=== PATIENT | female | born 1945 | race Caucasian/White ===

== ENCOUNTER 2016-09-05 14:56 | Inpatient (IN) | payer MEDICARE, MEDICAID ==
[2016-09-05] MEDS ORDERED: IPRATROPIUM/ALBUTEROL 0.5-2.5 MG/3 ML AMPUL NEB ONE (15:24)
[2016-09-05] MEDS ORDERED: PREDNISONE 20 MG TABLET PO ONE (15:24)
--- NOTE | 2016-09-05 15:25 | ER Document Report ---
ED Medical Screen (RME) - General Stated Complaint: CHEST PAIN, DIFFICULTY BREATHING Mode of Arrival: Wheelchair Information source: Patient Notes: Patient reports shortness of breath that started 4 days ago. Patient reports some midsternal chest discomfort off and on. Patient treats chest pain to cough symptoms. Pt takes eliquis, patient has been advised not to take aspirin. hx: Atrial fibrillation, hypertension, diabetes, dyslipidemia I have greeted and performed a rapid initial assessment of this patient. A comprehensive ED assessment and evaluation of the patient, analysis of test results and completion of the medical decision making process will be conducted by additional ED providers. - Related Data Allergies/Adverse Reactions: acetaminophen [From Percocet] Adverse Reaction (Verified 09/05/16 15:21) oxycodone HCl [From Percocet] Adverse Reaction (Verified 09/05/16 15:21) Past Medical History - Past Medical History Cardiac Medical History: Reports: Hx Hypercholesterolemia Malignancy Medical History: Reports: Hx Breast Cancer Musculoskeltal Medical History: Reports Hx Arthritis Past Surgical History: Reports: Hx Appendectomy, Hx Bowel Surgery, Hx Cholecystectomy, Hx Mastectomy - Immunizations Hx Diphtheria, Pertussis, Tetanus Vaccination: No Physical Exam - Vital signs Vitals: Temp Pulse Resp BP Pulse Ox 98.3 F 46 L 19 138/88 H 94 09/05/16 15:19 09/05/16 15:19 09/05/16 15:19 09/05/16 15:19 09/05/16 15:19 - Respiratory Respiratory status: No respiratory distress Breath sounds: Nonproductive cough, Wheezing Course - Vital Signs Vital signs: Temp Pulse Resp BP Pulse Ox 98.3 F 46 L 19 138/88 H 94 09/05/16 15:19 09/05/16 15:19 09/05/16 15:19 09/05/16 15:19 09/05/16 15:19
[2016-09-05 15:57] LABS: ABSOLUTE EOSINOPHILS # (AUTO) 0.1 10^3/uL (0.0-0.6); ABSOLUTE LYMPHOCYTES (AUTO) 0.9 10^3/uL (0.5-4.7); ABSOLUTE MONOCYTES (AUTO) 0.5 10^3/uL (0.1-1.4); ABSOLUTE NEUT (AUTO) 4.3 10^3/uL (1.7-8.2); BASOPHILS % (AUTO) 0.6 % (0-2); EOSINOPHILS % (AUTO) 1.9 % (0-6); HEMATOCRIT 37.6 % (36.0-47.0); HEMOGLOBIN 12.2 g/dL (12.0-15.5); LYMPHOCYTES % (AUTO) 15.4 % (13-45); MEAN CORPUSCULAR HEMOGLOBIN 27.8 pg (27.0-33.4); MEAN CORPUSCULAR HGB CONC 32.5 g/dL (32.0-36.0); MEAN CORPUSCULAR VOLUME 86 fl (80-97); MONOCYTES % (AUTO) 9.2 % (3-13); RED BLOOD COUNT 4.39 10^6/uL (3.72-5.28); RED CELL DISTRIBUTION WIDTH 16.1 % (11.5-14.0); SEGMENTED NEUTROPHILS % (AUTO) 72.9 % (42-78); WHITE BLOOD COUNT 5.9 10^3/uL (4.0-10.5)
[2016-09-05 16:22] LABS: ALANINE AMINOTRANSFERASE 32 U/L (9-52); ALBUMIN 3.6 g/dL (3.5-5.0); ALKALINE PHOSPHATASE 127 U/L (38-126); ANION GAP 13 (5-19); ASPARTATE AMINO TRANSFERASE 31 U/L (14-36); BLOOD UREA NITROGEN 16 mg/dL (7-20); CALCIUM 9.6 mg/dL (8.4-10.2); CARBON DIOXIDE 23 mmol/L (22-30); CHLORIDE 105 mmol/L (98-107); CREATINE KINASE 54 U/L (30-135); CREATININE RESULT 0.69 mg/dL (0.52-1.25); GLUCOSE 166 mg/dL (75-110); MAGNESIUM 1.7 mg/dL (1.6-2.3); POTASSIUM 3.7 mmol/L (3.6-5.0); SODIUM 140.9 mmol/L (137-145); TOTAL PROTEIN 6.1 g/dL (6.3-8.2)
[2016-09-05 16:34] LABS: CREATINE KINASE MB 1.07 ng/mL (<4.55); TROPONIN I < 0.012 ng/mL
[2016-09-05] MEDS ORDERED: FUROSEMIDE INJ/PF 40 MG/4 ML SDV IV ONE (17:07)
[2016-09-05] MEDS ORDERED: DILTIAZEM HCL INJ 25 MG/5 ML VIAL IV ONE ×3 (17:07→19:50)
--- NOTE | 2016-09-05 17:14 | ER Document Report ---
ED Cardiac - General Chief Complaint: Chest Pain Stated Complaint: CHEST PAIN, DIFFICULTY BREATHING Time seen by provider: 17:08 Mode of Arrival: Wheelchair Notes: The patient is a 71-year-old female, past medical history A. kory (on Eliquiis), GERD, presents with 5 days of increased shortness of breath and palpitations. She said her heart rate has been in the 120s to 140s over the past several days. She is taking her 240 mg Diltiazem ER daily and Eliquiis daily, last doses were this morning. She is also noticing leg swelling. Denies nausea, vomiting, back pain, syncope, calf tenderness, rash, abdominal pain, fevers or recent illness. TRAVEL OUTSIDE OF THE [place] IN LAST 30 DAYS: No - Related Data Allergies/Adverse Reactions: acetaminophen [From Percocet] Adverse Reaction (Verified 09/05/16 15:21) oxycodone HCl [From Percocet] Adverse Reaction (Verified 09/05/16 15:21) Home Medications: Current Home Medications Albuterol Sulfate [Albuterol Sulfate 2.5mg/3 mL] 1 vial NEB TID 09/05/16 [ History] Allopurinol [Zyloprim 300 mg Tablet] 300 mg PO DAILY 09/05/16 [History] Apixaban [Eliquis 5 mg Tablet] 5 mg PO BID 09/05/16 [History] Atorvastatin Calcium [Lipitor 40 mg Tablet] 40 mg PO DAILY 09/05/16 [History] Diltiazem HCl [Diltiazem ER] 240 mg PO DAILY 09/05/16 [History] Duloxetine HCl [Cymbalta] 60 mg PO DAILY 09/05/16 [History] Esomeprazole Magnesium [Nexium] 40 mg PO DAILY 09/05/16 [History] Metformin HCl [Metformin HCl ER] 1,000 mg PO BID 09/05/16 [History] Past Medical History - General Information source: Patient - Social History Smoking Status: Never Smoker Chew tobacco use (# tins/day): No Frequency of alcohol use: None Drug Abuse: None Family History: Reviewed & Not Pertinent Patient has suicidal ideation: No Patient has homicidal ideation: No - Past Medical History Cardiac Medical History: Reports: Hx Hypercholesterolemia Renal/ Medical History: Denies: Hx Peritoneal Dialysis Malignancy Medical History: Reports: Hx Breast Cancer Musculoskeltal Medical History: Reports Hx Arthritis Past Surgical History: Reports: Hx Appendectomy, Hx Bowel Surgery, Hx Cholecystectomy, Hx Mastectomy - Immunizations Hx Diphtheria, Pertussis, Tetanus Vaccination: No Review of Systems - Review of Systems Notes: REVIEW OF SYSTEMS: CONSTITUTIONAL: -fevers, -chills EENT: -eye pain, -difficulty swallowing, -nasal congestion CARDIOVASCULAR: +palpitations, -chest pain, -syncope. RESPIRATORY: -cough, -SOB GASTROINTESTINAL: -abdominal pain, -nausea, -vomiting, -diarrhea GENITOURINARY: -dysuria, -hematuria MUSCULOSKELETAL: -back pain, -neck pain SKIN: -rash or skin lesions. HEMATOLOGIC: -easy bruising or bleeding. LYMPHATIC: -swollen, enlarged glands. NEUROLOGICAL: -altered mental status or loss of consciousness, -headache, - neurologic symptoms PSYCHIATRIC: -anxiety, -depression. ALL OTHER SYSTEMS REVIEWED AND NEGATIVE. Physical Exam - Vital signs Vitals: Temp Pulse Resp BP Pulse Ox 98.3 F 46 L 19 138/88 H 94 09/05/16 15:19 09/05/16 15:19 09/05/16 15:19 09/05/16 15:19 09/05/16 15:19 - Notes Notes: PHYSICAL EXAMINATION: GENERAL: Well-appearing, well-nourished and in no acute distress. HEAD: Atraumatic, normocephalic. EYES: Pupils equal round and reactive to light, extraocular movements intact, sclera anicteric, conjunctiva are normal. ENT: nares patent, oropharynx clear without exudates. Moist mucous membranes. NECK: Normal range of motion, supple without lymphadenopathy LUNGS: B/L bibasilar rales, mildly tachypneic HEART: Tachycardic, irregularly irregular rhythm ABDOMEN: Soft, nontender, normoactive bowel sounds. No guarding, no rebound. No masses appreciated. EXTREMITIES: 1+ pitting edema in B/L lower extremity. NEUROLOGICAL: Cranial nerves grossly intact. Normal speech, normal gait. Normal sensory, motor, and reflex exams. PSYCH: Normal mood, normal affect. SKIN: Warm, Dry, normal turgor, no rashes or lesions noted. Course - Re-evaluation Re-evalutation: Pt in a fib. w/ RVR for the past 5 days. No chest pain and troponin negative. She also has evidence of mild pulmonary edema. Mildly tachypneic, but satting 96% on room air. Will begin patient on diltiazem drip and give IV Lasix with plan for admission. 09/05/16 18:[address] Barrera and he is not accepting patients at this time. Will call nighttime Hospitalist for admission. Pt's HR in low 100's after diltiazem and her SOB has improved after Lasix. 09/05/16 19:[address] Jordan and he has accepted patient as Inpatient IMCU. Pt resting comfortably and HR in 90's on Diltiazem drip. She already took her Eliquiis today. Her respiratory status has improved and she is no longer having tachypnea. - Vital Signs Vital signs: Temp Pulse Resp BP Pulse Ox 98.3 F 46 L 21 H 116/90 H 94 09/05/16 15:19 09/05/16 15:19 09/05/16 19:16 09/05/16 19:16 09/05/16 19:16 - Laboratory Result Diagrams: 09/05/16 15:45 09/05/16 15:45 Laboratory results interpreted by me: 09/05/16 09/05/16 15:45 15:45 RDW 16.1 H Glucose 166 H Alkaline Phosphatase 127 H Total Protein 6.1 L - Diagnostic Test Radiology reviewed: Image reviewed, Reports reviewed Radiology results interpreted by me: CXR: Evidence of pulmonary edema - EKG Interpretation by Me EKG shows normal: ST-T Waves Rate: Tachycardia Rhythm: A.Fib Critical Care Note - Critical Care Note Total time excluding time spent on procedures (mins): 40 Discharge - Discharge Clinical Impression: Atrial fibrillation with rapid ventricular response Pulmonary edema Qualifiers: Chronicity: acute Qualified Code(s): J81.0 - Acute pulmonary edema Condition: Stable Disposition: ADMITTED INPATIENT Admitting Provider: Hospitalist - Dr. Jordan Unit Admitted: IMCU Referrals: KADEN SYLVESTER PA-C [Primary Care Provider] - Follow up as needed
[2016-09-05] MEDS: DILTIAZEM HCL/D5W 125 ML IV PRN (17:26)
--- NOTE | 2016-09-05 18:06 | EKG REPORT ---
SEVERITY:- ABNORMAL ECG - ATRIAL FIBRILLATION, V-RATE 68-165 RIGHT AXIS DEVIATION : Confirmed by: Nubia Boyd MD 05-Sep-2016 18:05:34
[2016-09-05] MEDS ORDERED: DEXTROSE 40% GEL 15 GM TUBE PO PRN ×2 (20:48)
[2016-09-05] MEDS ORDERED: INSULIN LISPRO 100 UNIT/ML 3 ML VIAL SUBCUT PRN (20:48)
[2016-09-05] MEDS ORDERED: DEXTROSE 50%-WATER 25 GM/50 ML DISP.SYRIN IV PRN ×2 (20:48)
[2016-09-05] MEDS ORDERED: GLUCAGON,HUMAN RECOMB 1 MG INJ IM PRN (20:48)
[2016-09-05] MEDS ORDERED: ACETAMINOPHEN 325 MG TABLET PO PRN (20:52)
--- NOTE | 2016-09-05 21:42 | PDOC H&P ---
History of Present Illness Admission Date/PCP: 09/05/16 19:54 KADEN SYLVESTER PA-C Cardiology Dr. King Patient complains of: Rapid heart rate, short of breath History of Present Illness: JANICE CONCEPCION is a 71 year old obese female, with underlying gout, type II diabetes mellitus, mild reflux, history of mild depression without suicidal or homicidal ideation, hyperlipidemia, diagnosed last month with new onset atrial fibrillation who presents to the emergency room for evaluation of a 5 day history of palpitations, rapid heart rate, and increased shortness of breath, in particular with much of any exertion. Mild occasional chest discomfort, but none for the past 48 hours or so. No nausea vomiting, fever chills, diarrhea or dysuria. Bilateral lower extremity swelling. No history of DVT or pulmonary embolus. No specific diagnosis of congestive heart failure. Stated her workup last month after diagnosis of atrial fibrillation included echocardiogram and stress test, both of which were reportedly normal. Was noted to be in atrial fibrillation with rapid ventricular response, with chest x-ray evidence of vascular congestion. Has been treated with Cardizem bolus and drip along with Lasix and is currently resting quietly, breathing more comfortably. Again, chest pain-free. Has been compliant with her medications. Does state that there has been a recent change in her Cardizem, but could not be anymore specific than this. Patient has been discussed with emergency room physician who evaluated the patient. . Laboratory results are listed in [facility] and are reviewed. X-ray summary results are listed below, with full report(s) reviewed. . EKG reviewed. No old EKG available for comparison. Social history/personal habits: . Son lives with her. Retired. No use of alcohol tobacco or illicit drugs. Allergies/adverse reactions are listed in [facility] and are reviewed. Home medications are reviewed by bottle review and discussion with patient and have been reconciled by nursing staff in [facility]. Home medications initially autopopulated into [facility] may not accurately reflect patient's true medications, dosages, and/or frequencies. REVIEW OF SYSTEMS: Constitutional: No fever or chills. Eyes: Wears glasses. ENT: No swallowing problems or complaints. No hearing problems or complaints. Pulmonary: See history and present illness. Cardiovascular: See history and present illness. Gastrointestinal: No current complaints, including nausea or vomiting. Skin: No current complaints, including rashes. Hematologic: Easy bruising. Neurologic: No current complaints, including numbness or tingling. Musculoskeletal: No current complaints, including painful joints. Psychiatric: History of mild depression after her 's 12 years ago; denies suicidal or homicidal ideation. Endocrine: No current complaints, including polyuria. Genitourinary: No current complaints, including dysuria. PHYSICAL EXAMINATION: Temperature 98.3. Blood pressure 108/77. Pulse 145 and irregular. 93% saturation on room air. Respirations are 23 and unlabored. 5 feet 4 inches tall. 103.6 kg. BMI 39.2 kg/m. Obese otherwise well-developed elderly female appearing approximately her stated age. Pleasant awake alert and cooperative. No obvious distress other than perhaps mildly anxious. Daughter and patient's timber estimator are present; patient approves. Skin is warm and dry. No grossly obvious evidence of rash in areas of skin examined. No subcutaneous nodules palpated. ENT: Hearing grossly normal to normal conversation. Tongue midline on protrusion pink and slightly moist. Eyes: No scleral icterus. Pupils equal and reactive to light at 4 mm. [place] conjunctivae. Neck is supple and nontender to gentle active range of motion and palpation. Midline trachea. No palpable thyroid nodule mass enlargement or tenderness. Lymphatic: No palpable cervical or clavicular nodes. Neck and lymphatic exams limited by patient body habitus. Psychiatric: Reasonable insight into acute and chronic medical issues. Oriented to time location and why here. Lungs: Auscultation reveals equal breath sounds bilaterally. No use of accessory respiratory muscles. Faint brief expiratory wheezing bilaterally. Cardiovascular: Heart irregular rate and rhythm, without gallop murmur or rub. No carotid or abdominal aortic bruits. No ankle or pedal edema. Faintly palpable dorsalis pedis pulses. Abdomen: soft, obese, slightly distended nontender with positive bowel sounds. Unable to adequately evaluate abdomen for masses or organomegaly due to Body habitus and distention. Extremities: Feet are warm and dry. No calf tenderness to compression. No grossly obvious visual evidence of calf swelling. Gentle manipulation of lower extremities fails to reveal any obvious evidence of injury or instability to knees hips or ankles. Neurologic: Moves upper extremities grossly normally. Patellar reflexes absent. Absent Babinski. Light touch is intact at feet. Dorsiflexion and plantarflexion of feet 5 / 5 and symmetric. Past Medical History Cardiac Medical History: Reports: Hyperlipidema Denies: Congestive Heart Failure, DVT, Myocardial Infarction, Hypertension, Pulmonary Embolism Pulmonary Medical History: Denies: Asthma, Chronic Obstructive Pulmonary Disease (COPD) EENT Medical History: Reports: Eyes - Glasses Denies: Ears, Throat Neurological Medical History: Denies: Hemorrhagic CVA, Ischemic CVA, Seizures Endocrine Medical History: Reports: Diabetes Mellitus Type 2 Denies: Diabetes Mellitus Type 1, Hyperthyroidism, Hypothyroidism Renal/ Medical History: Reports: None Malignancy Medical History: Reports: Breast Cancer GI Medical History: Reports: Gastroesophageal Reflux Disease Denies: Cirrhosis, Hepatitis, Peptic Ulcer Disease Musculoskeltal Medical History: Reports: Arthritis, Gout Skin Medical History: Reports: None Psychiatric Medical History: Reports: Depression - Mild history, after her 's 12 years ago. Denies: Alcohol Dependency, General Anxiety Disorder, Substance Abuse, Tobacco Dependency Hematology: Reports: Other - Easy bruising Infectious Medical History: Denies: Hepatitis B, Hepatitis C Past Surgical History Past Surgical History: Reports: Appendectomy, Cholecystectomy, Mastectomy Social History Information Source: Patient, Emergency Med Personnel, [facility] Records Lives with: Family Smoking Status: Never Smoker Frequency of Alcohol Use: None Drugs: None - Advance Directive Resuscitation Status: Full Code Surrogate healthcare decision maker:: Children Family History Family History: Reviewed & Not Pertinent Parental Family History Reviewed: Yes Children Family History Reviewed: Yes Sibling(s) Family History Reviewed.: Yes Medication/Allergy Home Medications: Albuterol Sulfate [Albuterol Sulfate 2.5mg/3 mL] 1 vial NEB TID 09/05/16 Allopurinol [Zyloprim 300 mg Tablet] 300 mg PO DAILY 09/05/16 Apixaban [Eliquis 5 mg Tablet] 5 mg PO BID 09/05/16 Atorvastatin Calcium [Lipitor 40 mg Tablet] 40 mg PO DAILY 09/05/16 Duloxetine HCl [Cymbalta] 60 mg PO DAILY 09/05/16 Esomeprazole Magnesium [Nexium] 40 mg PO DAILY 09/05/16 Metformin HCl [Metformin HCl ER] 1,000 mg PO BID 09/05/16 Acetaminophen [Tylenol 325 mg Tablet] 650 mg PO Q4HP PRN tablet 09/10/16 Digoxin [Lanoxin 0.125 mg Tablet] 0.125 mg PO DAILY #30 tablet 09/10/16 Diltiazem HCl [Cardizem Cd 180 mg Capsule] 180 mg PO Q12 #60 capsule.cr Furosemide [Lasix] 40 mg PO DAILY #7 tablet 09/10/16 Metoprolol Tartrate [Lopressor] 100 mg PO BID #60 tablet 09/10/16 Potassium Chloride 20 meq PO DAILY #7 tablet.er 09/10/16 Spironolactone [Aldactone 25 mg Tablet] 25 mg PO DAILY #30 tablet 09/10/16 Allergies/Adverse Reactions: oxycodone HCl [From Percocet] Adverse Reaction (Verified 09/05/16 15:21) Physical Exam Vital Signs: Temp Pulse Resp BP Pulse Ox 98.6 F 46 L 20 116/74 93 09/05/16 20:50 09/05/16 15:19 09/05/16 20:46 09/05/16 20:46 09/05/16 20:22 Results Impressions: Chest X-Ray 09/05/16 15:24 IMPRESSION: Cardiomegaly with pulmonary vascular congestion. Small bilateral pleural effusions are identified. The appearance would suggest congestive failure. Clinical correlation is recommended Assessment & Plan - Diagnosis (1) Atrial fibrillation with rapid ventricular response Is this a current diagnosis for this admission?: YesPlan: Cardizem bolus and drip. Patient understands to notify staff should chest pain recur. Serial troponin's . I have strongly encouraged patient not to get out of bed without notifying staff , to avoid a fall with injury. Knee high SCDs for DVT prophylaxis. With patient on Eliquis, no need for Lovenox or heparin. Impression and plans were discussed with patient, who concurs. Time spent in evaluation and management of patient: 65 minutes. (2) CHF (congestive heart failure) Qualifiers: Congestive heart failure type: diastolic Congestive heart failure chronicity: acute on chronic Qualified Code(s): I50.33 - Acute on chronic diastolic (congestive) heart failure Is this a current diagnosis for this admission?: YesPlan: Mild. Likely secondary to atrial fibrillation with rapid ventricular response. Has responded nicely to Lasix. serial troponins. Cardiology consult at discretion of daytime hospitalist team. (3) Anticoagulated Is this a current diagnosis for this admission?: YesPlan: Resume home medications as appropriate once these have been reviewed. (4) Diabetes mellitus type 2 in obese Is this a current diagnosis for this admission?: YesPlan: Resume home medications as appropriate once these have been reviewed. Accu- Cheks with appropriate sliding scale coverage. (5) Gout Qualifiers: Gout site: unspecified site Encounter type: initial encounter Chronicity: chronic Presence of tophus: without tophus Is this a current diagnosis for this admission?: YesPlan: When necessary pain medication. No evidence of acute flare. (6) Hyperlipidemia Qualifiers: Hyperlipidemia type: unspecified Qualified Code(s): E78.5 - Hyperlipidemia, unspecified Is this a current diagnosis for this admission?: YesPlan: Resume home medications as appropriate once these have been reviewed. - Inpatient Certification Based on my medical assessment, after consideration of the patient's comorbidities, presenting symptoms, or acuity I expect that the services needed warrant INPATIENT care.: Yes I certify that my determination is in accordance with my understanding of Medicare's requirements for reasonable and necessary INPATIENT services [42 CFR 412.3e].: Yes Medical Necessity: Need Close Monitoring Due to Risk of Patient Decompensation, Need For Continuous Telemetry Monitoring, Risk of Diagnosis Which Will Require Inpatient Eval/Care/Monitoring Post Hospital Care: D/C or Transfer Summary
[2016-09-05] MEDS ORDERED: DILTIAZEM HCL/D5W 125 MG/125 ML RTUINJ IV ONE (22:54)
[2016-09-06] MEDS ORDERED: METOPROLOL TARTRATE PF/INJ 5 MG/5 ML SDV IV PRN (01:41)
[2016-09-06 01:42] LABS: APPEARANCE,URINE CLEAR; BILIRUBIN,URINE NEGATIVE (NEGATIVE); GLUCOSE, URINE NEGATIVE (NEGATIVE); KETONES,URINE NEGATIVE (NEGATIVE); LEUKOCYTE ESTERASE,URINE NEGATIVE (NEGATIVE); NITRITE,URINE NEGATIVE (NEGATIVE); PROTEIN,URINE NEGATIVE (NEGATIVE); URINE SPECIFIC GRAVITY 1.008; UROBILINOGEN,URINE NEGATIVE mg/dL (<2.0)
[2016-09-06] MEDS ORDERED: DILTIAZEM HCL INJ 25 MG/5 ML VIAL IV ONE (02:00)
[2016-09-06] MEDS ORDERED: POTASSIUM CHLORIDE 20 MEQ/15 ML UDCUP PO ONE (02:00)
[2016-09-06] MEDS: DILTIAZEM HCL/D5W 125 ML IV PRN ×3 (05:23→17:53)
[2016-09-06] MEDS: ALLOPURINOL 300 MG TABLET PO SCH (09:59)
[2016-09-06] MEDS: ATORVASTATIN CALCIUM 40 MG TABLET PO SCH (10:00)
[2016-09-06] MEDS ORDERED: DILTIAZEM HCL 240 MG PO SCH (10:00)
[2016-09-06] MEDS ORDERED: DILTIAZEM HCL 240 MG CAPSULE.CR PO SCH (10:00)
[2016-09-06] MEDS ORDERED: APIXABAN 5 MG TABLET PO ONE (12:00)
[2016-09-06] MEDS ORDERED: DULOXETINE HCL 30 MG CAPSULE.DR PO ONE (12:30)
--- NOTE | 2016-09-06 13:21 | PDOC PROGRESS REPORT ---
Subjective Progress Note for:: 09/06/16 Subjective:: The patient was seen earlier today on rounds. In spite of the patient's heart rate currently being 120 the patient is asymptomatic to this. A she states that at no time she ever had symptoms of atrial fibrillation. The patient denies any nausea, vomiting, diarrhea, shortness of breath, dizziness, chest pain, heart palpitations, fevers, or chills. The patient has remained afebrile. Blood pressures have been in a good range. When prompted the patient voices no other concerns at this time. Review of systems: The rest of the review of systems is negative. Physical Exam Vital Signs: Temp Pulse Resp BP Pulse Ox 98.1 F 145 H 18 108/60 94 09/06/16 11:31 09/06/16 11:31 09/06/16 11:31 09/06/16 10:00 09/06/16 11:31 Intake & Output 09/04/16 09/05/16 09/06/16 23:59 23:59 23:59 Intake Total 125 Balance 125 Weight 101.9 kg 101.9 kg General appearance: PRESENT: no acute distress, cooperative, well-developed, well-nourished Head exam: PRESENT: atraumatic, normocephalic Eye exam: PRESENT: conjunctiva pink, EOMI, PERRLA. ABSENT: scleral icterus Ear exam: PRESENT: normal external ear exam Mouth exam: PRESENT: moist, tongue midline Neck exam: ABSENT: carotid bruit, JVD, lymphadenopathy, thyromegaly Respiratory exam: PRESENT: clear to auscultation [place], symmetrical, unlabored. ABSENT: rales, rhonchi, tachypnea, wheezes Cardiovascular exam: PRESENT: irregular rhythm. ABSENT: diastolic murmur, rubs , systolic murmur Pulses: PRESENT: normal dorsalis pedis pul Vascular exam: PRESENT: normal capillary refill GI/Abdominal exam: PRESENT: normal bowel sounds, soft. ABSENT: distended, guarding, mass, organolmegaly, rebound, tenderness Rectal exam: PRESENT: deferred Extremities exam: PRESENT: full ROM. ABSENT: calf tenderness, clubbing, pedal edema Neurological exam: PRESENT: alert, awake, oriented to person, oriented to place , oriented to time, oriented to situation, CN II-XII grossly intact. ABSENT: motor sensory deficit Psychiatric exam: PRESENT: appropriate affect, normal mood. ABSENT: homicidal ideation, suicidal ideation Skin exam: PRESENT: dry, intact, warm. ABSENT: cyanosis, rash Results Laboratory Results: 09/06/16 01:25 Urine Color YELLOW Urine Appearance CLEAR Urine pH 5.0 Ur Specific [place] 1.008 Urine Protein NEGATIVE Urine Glucose (UA) NEGATIVE Urine Ketones NEGATIVE Urine Blood NEGATIVE Urine Nitrite NEGATIVE Ur Leukocyte Esterase NEGATIVE Urine WBC (Auto) 1 Urine RBC (Auto) 1 09/05/16 09/06/16 22:28 04:08 Troponin I 0.017 < 0.012 Impressions: Chest X-Ray 09/05/16 15:24 IMPRESSION: Cardiomegaly with pulmonary vascular congestion. Small bilateral pleural effusions are identified. The appearance would suggest congestive failure. Clinical correlation is recommended Assessment & Plan - Diagnosis (1) Atrial fibrillation with rapid ventricular response Is this a current diagnosis for this admission?: YesPlan: Patient is currently on Cardizem drip. Given the patient has not converted will consult cardiology for input with this. (2) CHF (congestive heart failure) Qualifiers: Congestive heart failure type: unspecified congestive heart failure type Congestive heart failure chronicity: acute Qualified Code(s): I50.9 - Heart failure, unspecified Is this a current diagnosis for this admission?: YesPlan: Uncertain of the exact etiology as patient is not had an echo. Will diurese the patient and monitor. (3) Anticoagulated Is this a current diagnosis for this admission?: YesPlan: Continue Eliquis (4) Diabetes mellitus type 2 in obese Is this a current diagnosis for this admission?: YesPlan: Will continue sliding scale coverage will hold metformin event the patient needs contrast. (5) Gout Qualifiers: Gout site: unspecified site Encounter type: initial encounter Chronicity: chronic Presence of tophus: without tophus Is this a current diagnosis for this admission?: YesPlan: Will continue home medications. (6) Hyperlipidemia Qualifiers: Hyperlipidemia type: unspecified Qualified Code(s): E78.5 - Hyperlipidemia, unspecified Is this a current diagnosis for this admission?: YesPlan: Statin - Time Time Spent with patient: 25-34 minutes Medications reviewed and adjusted accordingly: Yes Anticipated discharge: Home Within: within 24 hours, within 48 hours
[2016-09-06] MEDS ORDERED: POTASSIUM CHLORIDE 10 MEQ TABLET.SA PO ONE (15:00)
[2016-09-06] MEDS ORDERED: LANSOPRAZOLE 30 MG TAB.RAP.DR PO ONE (15:00)
[2016-09-06] MEDS: APIXABAN 5 MG TABLET PO SCH (18:01)
[2016-09-06] MEDS: FUROSEMIDE INJ/PF 20 MG/2 ML SDV IV SCH (18:02)
--- NOTE | 2016-09-06 18:03 | PDOC CONSULTATION ---
Consultation Consult Date: 09/06/16 Attending physician:: DAMIEN TENORIO Consult reason:: Atrial fibrillation with rapid ventricular response History of Present Illness Admission Date/PCP: 09/05/16 20:49 KADEN SYLVESTER PA-C Patient complains of: Shortness of breath, fatigue and tiredness History of Present Illness: JANICE CONCEPCION is a 71 year old obese female, with underlying gout, type II diabetes mellitus, mild reflux, history of mild depression without suicidal or homicidal ideation, hyperlipidemia, diagnosed last month with new onset atrial fibrillation who presents to the emergency room for evaluation of a 5 day history of palpitations, rapid heart rate, and increased shortness of breath, in particular with much of any exertion. Mild occasional chest discomfort, but none for the past 48 hours or so. No nausea vomiting, fever chills, diarrhea or dysuria. Bilateral lower extremity swelling. No history of DVT or pulmonary embolus. No specific diagnosis of congestive heart failure. Stated her workup last month after diagnosis of congestive heart failure included echocardiogram and stress test, both of which were reportedly normal area Was noted to be in atrial fibrillation with rapid ventricular response, with chest x-ray evidence of vascular congestion. Has been treated with Cardizem bolus and drip along with Lasix and is currently resting quietly, breathing more comfortably. Again, chest pain-free. Has been compliant with her medications. Does state that there has been a recent change in her Cardizem, but could not be anymore specific than this. Patient describes having a nuclear stress test and a echocardiogram recently at [facility] in [place] and is reported to have a negative result. Past Medical History Cardiac Medical History: Reports: Hyperlipidema Denies: Congestive Heart Failure, DVT, Myocardial Infarction, Hypertension, Pulmonary Embolism Pulmonary Medical History: Denies: Asthma, Chronic Obstructive Pulmonary Disease (COPD) EENT Medical History: Reports: Eyes - Glasses, Other - Easy bruising Denies: Ears, Throat Neurological Medical History: Denies: Hemorrhagic CVA, Ischemic CVA, Seizures Endocrine Medical History: Reports: Diabetes Mellitus Type 2 Denies: Diabetes Mellitus Type 1, Hyperthyroidism, Hypothyroidism Renal/ Medical History: Reports: None Malignancy Medical History: Reports: Breast Cancer GI Medical History: Reports: Gastroesophageal Reflux Disease Denies: Cirrhosis, Hepatitis, Peptic Ulcer Disease Musculoskeltal Medical History: Reports: Arthritis, Gout Skin Medical History: Reports: None Psychiatric Medical History: Reports: Depression - Mild history, after her 's 12 years ago. Denies: Alcohol Dependency, General Anxiety Disorder, Substance Abuse, Tobacco Dependency Hematology: Reports: Other - Easy bruising Infectious Medical History: Denies: Hepatitis B, Hepatitis C Past Surgical History Past Surgical History: Reports: Appendectomy, Cholecystectomy, Mastectomy Social History Information Source: Patient Lives with: Family Smoking Status: Never Smoker Frequency of Alcohol Use: None Hx Recreational Drug Use: No Drugs: None Hx Prescription Drug Abuse: No - Advance Directive Resuscitation Status: Full Code Family History Family History: Reviewed & Not Pertinent Parental Family History Reviewed: Yes Children Family History Reviewed: Yes Sibling(s) Family History Reviewed.: Yes - Negative for premature coronary artery disease or sudden cardiac in the family amongst first degree relatives. Medication/Allergy Home Medications: Albuterol Sulfate [Albuterol Sulfate 2.5mg/3 mL] 1 vial NEB TID 09/05/16 Allopurinol [Zyloprim 300 mg Tablet] 300 mg PO DAILY 09/05/16 Apixaban [Eliquis 5 mg Tablet] 5 mg PO BID 09/05/16 Atorvastatin Calcium [Lipitor 40 mg Tablet] 40 mg PO DAILY 09/05/16 Diltiazem HCl [Diltiazem ER] 240 mg PO DAILY 09/05/16 Duloxetine HCl [Cymbalta] 60 mg PO DAILY 09/05/16 Esomeprazole Magnesium [Nexium] 40 mg PO DAILY 09/05/16 Metformin HCl [Metformin HCl ER] 1,000 mg PO BID 09/05/16 Allergies/Adverse Reactions: oxycodone HCl [From Percocet] Adverse Reaction (Verified 09/05/16 15:21) Review of Systems Review of Systems: Please see history of present illness and past medical history as wall. Constitutional: No fever or chills reported. Head : No recent chronic headaches, recent head injury. Eyes: No recent eye pain, diplopia, redness, discharge, acute visual changes. Ears: No recent chronic ear pain, acute hearing loss, ear discharge. Oral cavity: No recent ulcerations, bleeding, oral cavity discomfort. Neck: No recent acute neck pain reported. Hematologic: No recent easy bruising or bleeding or hematologic malignancy reported. Lymphatic: No recent lymphatic malignancy, chronic lymphadenopathy reported yet Cardiovascular system review: See history of present illness. Respiratory system review: No recent chronic cough, hemoptysis, blood clots in the lungs reported. Mild Shortness of breath on exertion Gastrointestinal system review: Negative for any recent acute or chronic abdominal pain, hematemesis, melena, recent change in bowel habits. Genitourinary system review: No recent acute or chronic hematuria, flank pain, UTI etc. reported. Skin system review: Negative for any recent abnormal bruising, no rash, no pruritus reported. Neurologic: No prior history of strokes, mini strokes, seizure disorder. Psychologic: No history of major psychosis or major depression reported. Musculoskeletal: Minor aches and pains reported. No acute joint swelling reported. Endocrine: No recent polyuria, polydipsia, recent heat or cold intolerance. Physical Exam Vital Signs: Temp Pulse Resp BP Pulse Ox 98.3 F 132 H 18 130/85 H 96 09/06/16 15:06 09/06/16 16:00 09/06/16 15:06 09/06/16 16:00 09/06/16 15:06 Intake & Output 09/05/16 09/06/16 09/07/16 06:59 06:59 06:59 Intake Total 125 Balance 125 Weight 101.9 kg Exam: GENERAL: well-nourished and in no acute distress. Alert and oriented x3 HEAD: Atraumatic, normocephalic. EYES: Pupils equal round and reactive to light, extraocular movements intact, sclera anicteric, conjunctiva are normal. ENT: TMs normal, nares patent, oropharynx clear without exudates. Moist mucous membranes. No oral ulcerations or bleeding gums noted NECK: supple without lymphadenopathy. Trachea is central. No cervical or axillary lymphadenopathy noted. Carotids are 2+, JVD WNL LUNGS: Respiration seems nonlabored, no significant accessory muscle action noted. Breath sounds clear to auscultation bilaterally and equal noted. No wheezes rales or rhonchi noted. No significant dullness noted on percussion. CHEST: Palpation of the chest wall shows no significant chest wall tenderness. No other significant abnormalities noted. 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 ABDOMEN: Soft, no significant tenderness appreciated, normoactive bowel sounds. No guarding, no rebound. No rigidity noted . No masses appreciated. EXTREMITIES: Pedal pulses are 1-2+, no calf tenderness noted. No clubbing or cyanosis.trace to 1+ pedal edema noted NEUROLOGICAL: Focused neurological exam showed no significant neurologic deficit. Normal speech, no focal weakness appreciated. PSYCH: Normal mood, normal affect. Judgment and insight within normal limits. SKIN: No significant ecchymosis, rash, ulcerations or signs of pruritus noted. MUSCULOSKELETAL EXAM: No significant joint swelling noted. Results Laboratory Results: 09/06/16 01:25 Urine Color YELLOW Urine Appearance CLEAR Urine pH 5.0 Ur Specific [place] 1.008 Urine Protein NEGATIVE Urine Glucose (UA) NEGATIVE Urine Ketones NEGATIVE Urine Blood NEGATIVE Urine Nitrite NEGATIVE Ur Leukocyte Esterase NEGATIVE Urine WBC (Auto) 1 Urine RBC (Auto) 1 09/05/16 09/06/16 22:28 04:08 Troponin I 0.017 < 0.012 EKG Comments: Atrial fibrillation with rapid ventricular response. No acute ST segment changes noted. Impressions: Chest X-Ray 09/05/16 15:24 IMPRESSION: Cardiomegaly with pulmonary vascular congestion. Small bilateral pleural effusions are identified. The appearance would suggest congestive failure. Clinical correlation is recommended Assessment & Plan - Diagnosis (1) Atrial fibrillation with rapid ventricular response Is this a current diagnosis for this admission?: YesPlan: Agree with Cardizem drip. Will add beta demond. It may be worthwhile to consider repeating the 2-D echo. Will try to obtain 2-D echo results. Continue chronic anticoagulation with ELIQUIS.. (2) CHF (congestive heart failure) Qualifiers: Congestive heart failure type: diastolic Congestive heart failure chronicity: acute on chronic Qualified Code(s): I50.33 - Acute on chronic diastolic (congestive) heart failure Is this a current diagnosis for this admission?: YesPlan: Chest x-ray suggestive of CHF. Will obtain a BNP level. Agree with IV diuretics. CHF precipitated by atrial fibrillation with rapid ventricular response. (3) Chest discomfort Is this a current diagnosis for this admission?: YesPlan: Most likely related to atrial fibrillation with rapid ventricular response. Will try to obtain previous stress test report. (4) Diabetes mellitus type 2 in obese Is this a current diagnosis for this admission?: YesPlan: Diabetes: Recommend good control of blood sugar. However should avoid any hypoglycemia. Patient being expertly managed by primary care M.Sandra. (5) Hyperlipidemia Qualifiers: Hyperlipidemia type: unspecified Qualified Code(s): E78.5 - Hyperlipidemia, unspecified Is this a current diagnosis for this admission?: YesPlan: Patient noted to have dyslipidemia. LDL goal is less than 70. Recommend statin therapy at least intermediate or high dose, of high potency status. Periodic lipid panel and liver panel is indicated. Patient to report any significant muscle discomfort or other side effects. - Notes Notes: CODE STATUS was discussed, patient remains full code. Surrogate decision-maker pts daughter. Multiple medical problems were addressed. - Time Time Spent: 30 to 50 Minutes - More than 50% of the time spent coordinating care , discussing management plans with involved caregivers. Management plans discussed with involved personnels. Medical decision making was of moderate complexity.
[2016-09-06] MEDS ORDERED: SPIRONOLACTONE 25 MG TABLET PO ONE (18:45)
[2016-09-06] MEDS ORDERED: METOPROLOL TARTRATE PF/INJ 5 MG/5 ML SDV IV ONE (20:15)
[2016-09-06] MEDS ORDERED: METOPROLOL SUCCINATE 25 MG TAB.SR.24H PO SCH (20:15)
[2016-09-06] MEDS ORDERED: METOPROLOL SUCCINATE 25 MG TAB.SR.24H PO ONE (20:30)
[2016-09-07] MEDS: DILTIAZEM HCL/D5W 125 ML IV PRN (01:50)
[2016-09-07] MEDS: LANSOPRAZOLE 30 MG TAB.RAP.DR PO SCH (05:33)
[2016-09-07 06:20] LABS: ANION GAP 11 (5-19); BLOOD UREA NITROGEN 23 mg/dL (7-20); CALCIUM 9.6 mg/dL (8.4-10.2); CARBON DIOXIDE 25 mmol/L (22-30); CHLORIDE 105 mmol/L (98-107); CREATININE RESULT 0.73 mg/dL (0.52-1.25); GLUCOSE 119 mg/dL (75-110); MAGNESIUM 1.9 mg/dL (1.6-2.3); POTASSIUM 3.7 mmol/L (3.6-5.0); SODIUM 141.4 mmol/L (137-145)
[2016-09-07] MEDS: ATORVASTATIN CALCIUM 40 MG TABLET PO SCH (09:51)
[2016-09-07] MEDS: FUROSEMIDE INJ/PF 20 MG/2 ML SDV IV SCH (09:51)
[2016-09-07] MEDS: ALLOPURINOL 300 MG TABLET PO SCH (09:51)
[2016-09-07] MEDS: APIXABAN 5 MG TABLET PO SCH ×2 (09:51→17:28)
[2016-09-07] MEDS: DULOXETINE HCL 30 MG CAPSULE.DR PO SCH (09:53)
[2016-09-07] MEDS: SPIRONOLACTONE 25 MG TABLET PO SCH (09:53)
[2016-09-07] MEDS: METOPROLOL SUCCINATE 25 MG TAB.SR.24H PO SCH ×2 (10:47→22:25)
--- NOTE | 2016-09-07 11:35 | PDOC PROGRESS REPORT ---
Subjective Progress Note for:: 09/07/16 Subjective:: The patient was seen earlier today on rounds. Heart rate is much better controlled. A-fib. She states that at no time she ever had symptoms of atrial fibrillation. The patient denies any nausea, vomiting, diarrhea, shortness of breath, dizziness, chest pain, heart palpitations, fevers, or chills. The patient has remained afebrile. Blood pressures have been in a good range. When prompted the patient voices no other concerns at this time. Review of systems: The rest of the review of systems is negative. Physical Exam Vital Signs: Temp Pulse Resp BP Pulse Ox 97.9 F 101 H 18 117/83 92 09/07/16 07:23 09/07/16 11:00 09/07/16 07:23 09/07/16 11:00 09/07/16 07:23 Intake & Output 09/05/16 09/06/16 09/07/16 23:59 23:59 23:59 Intake Total 1199 1240 Balance 1199 1240 Weight 101.9 kg 101.9 kg 102.7 kg General appearance: PRESENT: no acute distress, cooperative, well-developed, well-nourished Head exam: PRESENT: atraumatic, normocephalic Eye exam: PRESENT: conjunctiva pink, EOMI, PERRLA. ABSENT: scleral icterus Ear exam: PRESENT: normal external ear exam Mouth exam: PRESENT: moist, tongue midline Neck exam: ABSENT: carotid bruit, JVD, lymphadenopathy, thyromegaly Respiratory exam: PRESENT: clear to auscultation kingsley, symmetrical, unlabored. ABSENT: rales, rhonchi, tachypnea, wheezes Cardiovascular exam: PRESENT: irregular rhythm. ABSENT: diastolic murmur, rubs , systolic murmur Pulses: PRESENT: normal dorsalis pedis pul Vascular exam: PRESENT: normal capillary refill GI/Abdominal exam: PRESENT: normal bowel sounds, soft. ABSENT: distended, guarding, mass, organolmegaly, rebound, tenderness Rectal exam: PRESENT: deferred Extremities exam: PRESENT: full ROM. ABSENT: calf tenderness, clubbing, pedal edema Neurological exam: PRESENT: alert, awake, oriented to person, oriented to place , oriented to time, oriented to situation, CN II-XII grossly intact. ABSENT: motor sensory deficit Psychiatric exam: PRESENT: appropriate affect, normal mood. ABSENT: homicidal ideation, suicidal ideation Skin exam: PRESENT: dry, intact, warm. ABSENT: cyanosis, rash Results Laboratory Results: 09/07/16 05:15 09/07/16 05:15 Sodium 141.4 Potassium 3.7 Chloride 105 Carbon Dioxide 25 Anion Gap 11 BUN 23 H Creatinine 0.73 Est GFR ( Amer) > 60 Est GFR (Non-Af Amer) > 60 Glucose 119 H Calcium 9.6 Magnesium 1.9 09/05/16 09/06/16 09/06/16 22:28 04:08 18:38 Troponin I 0.017 < 0.012 NT-Pro-B Natriuret Pep 1690 H Impressions: Chest X-Ray 09/05/16 15:24 IMPRESSION: Cardiomegaly with pulmonary vascular congestion. Small bilateral pleural effusions are identified. The appearance would suggest congestive failure. Clinical correlation is recommended Assessment & Plan - Diagnosis (1) Atrial fibrillation with rapid ventricular response Is this a current diagnosis for this admission?: YesPlan: Patient is currently on Cardizem drip. Rate controlled. Awaiting Cardiology input. (2) CHF (congestive heart failure) Qualifiers: Congestive heart failure type: diastolic Congestive heart failure chronicity: acute on chronic Qualified Code(s): I50.33 - Acute on chronic diastolic (congestive) heart failure Is this a current diagnosis for this admission?: YesPlan: Uncertain of the exact etiology as patient is not had an echo. Will diurese the patient and monitor. (3) Anticoagulated Is this a current diagnosis for this admission?: YesPlan: Continue Eliquis (4) Diabetes mellitus type 2 in obese Is this a current diagnosis for this admission?: YesPlan: Will continue sliding scale coverage will resume metformin (5) Gout Qualifiers: Gout site: unspecified site Encounter type: initial encounter Chronicity: chronic Presence of tophus: without tophus Is this a current diagnosis for this admission?: YesPlan: Will continue home medications. (6) Hyperlipidemia Qualifiers: Hyperlipidemia type: unspecified Qualified Code(s): E78.5 - Hyperlipidemia, unspecified Is this a current diagnosis for this admission?: YesPlan: Statin - Time Time Spent with patient: 25-34 minutes Medications reviewed and adjusted accordingly: Yes Anticipated discharge: Home Within: within 24 hours, within 48 hours
[2016-09-07] MEDS ORDERED: METFORMIN HCL 500 MG TABLET PO ONE (13:00)
[2016-09-07] MEDS ORDERED: DILTIAZEM HCL 120 MG CAP.SR.24H PO ONE (13:00)
--- NOTE | 2016-09-07 15:06 | PDOC PROGRESS REPORT ---
Subjective Progress Note for:: 09/07/16 Subjective:: Patient seems to be doing better with gradual improvement. Pt is denying any chest arm or neck discomfort. Patient denying any PND, orthopnea. Patient denied any sustained palpitations, dizziness, syncope, near syncope. Patient denying any fever chills. Patient denying any other significant discomfort. She and is still having intermittent increased shortness of breath and shortness of breath on minimal exertion. Patient is is continuing to be in atrial fibrillation. Rate somewhat better controlled. Review of systems: Rest review of systems negative. Medications: Medications have been reviewed. Physical Exam Vital Signs: Temp Pulse Resp BP Pulse Ox 97.7 F 100 18 109/65 96 09/07/16 11:20 09/07/16 13:00 09/07/16 11:20 09/07/16 13:00 09/07/16 11:20 Intake & Output 09/06/16 09/07/16 09/08/16 06:59 06:59 06:59 Intake Total 125 2314 Balance 125 2314 Weight 101.9 kg 102.7 kg Exam: GENERAL: well-nourished and in no acute distress. Alert and oriented x3 HEAD: Atraumatic, normocephalic. EYES: Pupils equal round and reactive to light, extraocular movements intact, sclera anicteric, conjunctiva are normal. ENT: TMs normal, nares patent, oropharynx clear without exudates. Moist mucous membranes. No oral ulcerations or bleeding gums noted NECK: supple without lymphadenopathy. Trachea is central. No cervical or axillary lymphadenopathy noted. Carotids are 2+, JVD 12 CM LUNGS: Respiration seems nonlabored, no significant accessory muscle action noted. Bibasilar fine crackles and wheezing noted. CHEST: Palpation of the chest wall shows no significant chest wall tenderness. No other significant abnormalities noted. 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 ABDOMEN: Soft, no significant tenderness appreciated, normoactive bowel sounds. No guarding, no rebound. No rigidity noted . No masses appreciated. EXTREMITIES: Pedal pulses are 1-2+, no calf tenderness noted. No clubbing or cyanosis.1+ pedal edema noted NEUROLOGICAL: Focused neurological exam showed no significant neurologic deficit. Normal speech, no focal weakness appreciated. PSYCH: Normal mood, normal affect. Judgment and insight within normal limits. SKIN: No significant ecchymosis, rash, ulcerations or signs of pruritus noted. MUSCULOSKELETAL EXAM: No significant joint swelling noted. Results Laboratory Results: 09/07/16 05:15 09/07/16 05:15 Sodium 141.4 Potassium 3.7 Chloride 105 Carbon Dioxide 25 Anion Gap 11 BUN 23 H Creatinine 0.73 Est GFR ( Amer) > 60 Est GFR (Non-Af Amer) > 60 Glucose 119 H Calcium 9.6 Magnesium 1.9 09/05/16 09/06/16 09/06/16 22:28 04:08 18:38 Troponin I 0.017 < 0.012 NT-Pro-B Natriuret Pep 1690 H Impressions: Chest X-Ray 09/05/16 15:24 IMPRESSION: Cardiomegaly with pulmonary vascular congestion. Small bilateral pleural effusions are identified. The appearance would suggest congestive failure. Clinical correlation is recommended Assessment & Plan - Diagnosis (1) Atrial fibrillation with rapid ventricular response Is this a current diagnosis for this admission?: Yes (2) CHF (congestive heart failure) Qualifiers: Congestive heart failure type: diastolic Congestive heart failure chronicity: acute on chronic Qualified Code(s): I50.33 - Acute on chronic diastolic (congestive) heart failure Is this a current diagnosis for this admission?: Yes (3) Chest discomfort Is this a current diagnosis for this admission?: Yes (4) Diabetes mellitus type 2 in obese Is this a current diagnosis for this admission?: Yes (5) Hyperlipidemia Qualifiers: Hyperlipidemia type: unspecified Qualified Code(s): E78.5 - Hyperlipidemia, unspecified Is this a current diagnosis for this admission?: Yes - Notes Notes: Atrial fibrillation: Seems persistent or chronic. Rate still not well controlled. Have placed patient on by mouth Cardizem. In addition will give additional Cardizem as needed. Congestive heart failure: Patient seems to have significant exacerbation. Will repeat a 2-D echocardiogram. Patient placed on Lasix 40 mg IV every 12. Chest discomfort: There has been no recurrence. A recent nuclear stress test was reported to be negative. Diabetes: Currently stable. Continue current management plan. Dyslipidemia: Continue statin therapy. - Time Time with patient: Greater than 35 minutes - CODE STATUS was discussed, patient remains full code. Surrogate decision-maker unchanged. Multiple medical problems were addressed.More than 50% of the time spent coordinating care, discussing management plans with involved caregivers. Management plans discussed with involved personnels. Medical decision making was of moderate complexity. Medications reviewed and adjusted accordingly: Yes - multiple orders were written
[2016-09-07] MEDS: METFORMIN HCL 500 MG TABLET PO SCH (17:29)
[2016-09-07] MEDS: FUROSEMIDE INJ/PF 40 MG/4 ML SDV IV SCH (17:29)
[2016-09-07] MEDS ORDERED: (PENDING PHARMACY ID) (Metformin Hcl [Metformin Hcl Er] 1,000 MG) PO SCH (18:00)
[2016-09-07] MEDS: DILTIAZEM HCL INJ 25 MG/5 ML VIAL IV PRN ×2 (19:58→22:24)
[2016-09-07] MEDS ORDERED: FUROSEMIDE INJ/PF 40 MG/4 ML SDV IV SCH (22:00)
[2016-09-07] MEDS ORDERED: DILTIAZEM HCL 120 MG CAP.SR.24H PO SCH (22:00)
[2016-09-08] MEDS: DILTIAZEM HCL INJ 25 MG/5 ML VIAL IV PRN (00:50)
[2016-09-08] MEDS: LANSOPRAZOLE 30 MG TAB.RAP.DR PO SCH (06:26)
[2016-09-08] MEDS: ALLOPURINOL 300 MG TABLET PO SCH (09:30)
[2016-09-08] MEDS: APIXABAN 5 MG TABLET PO SCH ×2 (09:30→18:40)
[2016-09-08] MEDS: ATORVASTATIN CALCIUM 40 MG TABLET PO SCH (09:30)
[2016-09-08] MEDS: METFORMIN HCL 500 MG TABLET PO SCH ×2 (09:30→18:42)
[2016-09-08] MEDS: FUROSEMIDE INJ/PF 40 MG/4 ML SDV IV SCH ×2 (09:31→18:42)
[2016-09-08] MEDS: DULOXETINE HCL 30 MG CAPSULE.DR PO SCH (09:31)
[2016-09-08] MEDS: SPIRONOLACTONE 25 MG TABLET PO SCH (09:32)
[2016-09-08] MEDS ORDERED: METOPROLOL SUCCINATE 25 MG TAB.SR.24H PO SCH ×2 (10:00→10:02)
--- NOTE | 2016-09-08 10:05 | PDOC PROGRESS REPORT ---
Subjective Progress Note for:: 09/08/16 Subjective:: The patient was seen earlier today on rounds. Heart rate is much better controlled but still greater than 110 most of the time. A-fib. She states that at no time she ever had symptoms of atrial fibrillation. Soreness of breath has significantly improved with activity. The patient denies any nausea , vomiting, diarrhea, dizziness, chest pain, heart palpitations, fevers, or chills. The patient has remained afebrile. Blood pressures have been in a good range. When prompted the patient voices no other concerns at this time. Review of systems: The rest of the review of systems is negative. Physical Exam Vital Signs: Temp Pulse Resp BP Pulse Ox 97.7 F 113 H 19 123/68 94 09/08/16 08:07 09/08/16 08:07 09/08/16 08:07 09/08/16 08:07 09/08/16 08:07 Intake & Output 09/06/16 09/07/16 09/08/16 23:59 23:59 23:59 Intake Total 1199 1745 66 Balance 1199 1745 66 Weight 101.9 kg 102.7 kg 97.8 kg General appearance: PRESENT: no acute distress, cooperative, well-developed, well-nourished Head exam: PRESENT: atraumatic, normocephalic Eye exam: PRESENT: conjunctiva pink, EOMI, PERRLA. ABSENT: scleral icterus Ear exam: PRESENT: normal external ear exam Mouth exam: PRESENT: moist, tongue midline Neck exam: ABSENT: carotid bruit, ymphadenopathy, thyromegaly. JVP just above the right clavicle Respiratory exam: PRESENT: clear to auscultation [place], symmetrical, unlabored. ABSENT: rales, rhonchi, tachypnea, wheezes Cardiovascular exam: PRESENT: irregular rhythm. ABSENT: diastolic murmur, rubs , systolic murmur Pulses: PRESENT: normal dorsalis pedis pul Vascular exam: PRESENT: normal capillary refill GI/Abdominal exam: PRESENT: normal bowel sounds, soft. ABSENT: distended, guarding, mass, organolmegaly, rebound, tenderness Rectal exam: PRESENT: deferred Extremities exam: PRESENT: full ROM. ABSENT: calf tenderness, clubbing, pedal edema Neurological exam: PRESENT: alert, awake, oriented to person, oriented to place , oriented to time, oriented to situation, CN II-XII grossly intact. ABSENT: motor sensory deficit Psychiatric exam: PRESENT: appropriate affect, normal mood. ABSENT: homicidal ideation, suicidal ideation Skin exam: PRESENT: dry, intact, warm. ABSENT: cyanosis, rash Results Laboratory Results: 09/07/16 05:15 09/05/16 09/06/16 09/06/16 22:28 04:08 18:38 Troponin I 0.017 < 0.012 NT-Pro-B Natriuret Pep 1690 H Impressions: Chest X-Ray 09/05/16 15:24 IMPRESSION: Cardiomegaly with pulmonary vascular congestion. Small bilateral pleural effusions are identified. The appearance would suggest congestive failure. Clinical correlation is recommended Assessment & Plan - Diagnosis (1) Atrial fibrillation with rapid ventricular response Is this a current diagnosis for this admission?: YesPlan: The patient is has been transitioned to oral Cardizem. Rate is a little better control but still high. Will increase Lopressor and monitor blood pressure. Discussed the case with cardiology feels the patient may be dischargeable in the a.m. (2) CHF (congestive heart failure) Qualifiers: Congestive heart failure type: diastolic Congestive heart failure chronicity: acute on chronic Qualified Code(s): I50.33 - Acute on chronic diastolic (congestive) heart failure Is this a current diagnosis for this admission?: YesPlan: Awaiting echocardiogram for further classification. Continue to diurese as the patient still has JVP (3) Anticoagulated Is this a current diagnosis for this admission?: YesPlan: Continue Eliquis (4) Diabetes mellitus type 2 in obese Is this a current diagnosis for this admission?: YesPlan: Will continue sliding scale coverage and metformin (5) Gout Qualifiers: Gout site: unspecified site Encounter type: initial encounter Chronicity: chronic Presence of tophus: without tophus Is this a current diagnosis for this admission?: YesPlan: Will continue home medications. (6) Hyperlipidemia Qualifiers: Hyperlipidemia type: unspecified Qualified Code(s): E78.5 - Hyperlipidemia, unspecified Is this a current diagnosis for this admission?: YesPlan: Statin - Time Time Spent with patient: 25-34 minutes Medications reviewed and adjusted accordingly: Yes Anticipated discharge: Home Within: within 24 hours
[2016-09-08] MEDS: DILTIAZEM HCL 180 MG CAPSULE.CR PO SCH (11:40)
--- NOTE | 2016-09-08 12:54 | XCELERA REPORT ---
[address] [address] Transthoracic Echocardiogram Report Name: JANICE CONCEPCION Age: 71 yrs Gender: Female : 1945 Patient Status: Inpatient Patient Location: [id number]\S\319\S\A Study Date: 09/08/2016 10:20 AM Height: 64 in Weight: 226 lb BSA: 2.1 m2 Procedure: A complete two-dimensional transthoracic echocardiogram was performed (2D, M-mode, spectral and color flow Doppler). The study was technically difficult with many images being suboptimal in quality. Reason For Study: exacerbation of CHF, recurrent Ordering Physician: CECIL VELA Performed By: Pam Marcial Interpretation Summary LV EF is 40-45% LV diastolic function could not be adequately assessed due to atrial fibrilation. Left ventricular systolic function is mild to moderately reduced. There is normal left ventricular wall thickness. The left ventricle is borderline dilated. There is mild to moderate global hypokinesis of the left ventricle. The right ventricle is mildly dilated. The right ventricular systolic function is borderline reduced. The left atrium is mildly dilated. The right atrium is mildly dilated. There is a mild amount of mitral regurgitation There is no mitral valve stenosis. There is a trace amount of aortic regurgitation There is no aortic valve stenosis There is a trace or physiologic amount of tricuspid regurgitation Tricuspid regurgitation jet envelope not well defined to measure RV systolic pressure accurately. The aortic root is not well visualized but is probably normal size. The inferior vena cava appeared normal and decreased > 50% with respiration (RAP 5-10 mmHg) There is no pericardial effusion. The study was technically difficult with many images being suboptimal in quality. MMode/2D Measurements \T\ Calculations RVDd: 3.2 cm LVIDd: 5.5 cm FS: 22.2 % Ao root diam: IVSd: 0.88 cm LVIDs: 4.3 cm EDV(Teich): 146.6 ml 3.2 cm LVPWd: 0.85 cm ESV(Teich): 81.7 ml Ao root area: EF(Teich): 44.3 % 8.0 cm2 LA dimension: 4.0 cm LVOT diam: LVLd ap4: 7.6 cm SV(MOD-sp4): 47.0 ml 2.2 cm EDV(MOD-sp4): LA A2Cs: 25.1 cm2 LVOT area: 103.0 ml LVLs ap4: 6.9 cm 3.7 cm2 ESV(MOD-sp4): 56.0 ml EF(MOD-sp4): 45.6 % LA A4Cs: LA length: 6.9 cm LA Vol Index (BP): LA Volume: 84.4 ml 27.3 cm2 41.0 ml/m2 Doppler Measurements \T\ Calculations MV E max chintan: MV P1/2t max chintan: Ao V2 max: AI max chintan: 58.6 cm/sec 59.0 cm/sec 118.9 cm/sec 364.4 cm/sec MV A max chintan: MV P1/2t: 69.3 msec Ao max PG: AI max P.0 cm/sec MVA(P1/2t): 3.2 cm2 5.7 mmHg 53.1 mmHg MV E/A: 2.4 MV dec slope: LELIA(V,D): 2.7 cm2 AI dec slope: 173.8 cm/sec2 249.3 cm/sec2 AI P1/2t: 614.0 msec LV V1 max PG: PA V2 max: TR max chintan: 3.1 mmHg 59.0 cm/sec 217.2 cm/sec LV V1 max: PA max P.4 mmHg TR max P.5 cm/sec 18.9 mmHg Left Ventricle The left ventricle is borderline dilated. There is normal left ventricular wall thickness. Left ventricular systolic function is mild to moderately reduced. LV EF is 40-45%. LV diastolic function could not be adequately assessed due to atrial fibrilation. There is mild to moderate global hypokinesis of the left ventricle. Right Ventricle The right ventricle is mildly dilated. There is normal right ventricular wall thickness. The right ventricular systolic function is borderline reduced. Atria The right atrium is mildly dilated. The left atrium is mildly dilated. Interarterial septum not well visualized and not well dopplered. Cannot comment on ASD/PFO presence. Mitral Valve There is mild mitral annular calcification. There is no mitral valve stenosis. There is a mild amount of mitral regurgitation. Aortic Valve The aortic valve is grossly normal. There is no aortic valve stenosis. There is a trace amount of aortic regurgitation. Tricuspid Valve The tricuspid valve is not well visualized secondary to technical limitations. There is no tricuspid stenosis. There is a trace or physiologic amount of tricuspid regurgitation. Tricuspid regurgitation jet envelope not well defined to measure RV systolic pressure accurately. Pulmonic Valve The pulmonic valve is not well visualized. Great Vessels The aortic root is not well visualized but is probably normal size. The inferior vena cava appeared normal and decreased > 50% with respiration (RAP 5-10 mmHg). Effusions There is no pericardial effusion. : CECIL VELA > Cecil Vela
--- NOTE | 2016-09-08 13:05 | PDOC PROGRESS REPORT ---
Subjective Progress Note for:: 09/08/16 Subjective:: Patient seems to be doing better with gradual improvement. Pt is denying any chest arm or neck discomfort. Patient denying any PND, orthopnea. Patient denied any sustained palpitations, dizziness, syncope, near syncope. Patient denying any fever chills. Patient denying any other significant discomfort. She and is still having intermittent increased shortness of breath and shortness of breath on minimal exertion. Patient has not ambulated much. Patient is is continuing to be in atrial fibrillation. Rate somewhat better controlled. Review of systems: Rest review of systems negative. Medications: Medications have been reviewed. Physical Exam Vital Signs: Temp Pulse Resp BP Pulse Ox 98.0 F 57 L 19 123/61 97 09/08/16 11:37 09/08/16 11:37 09/08/16 11:37 09/08/16 11:53 09/08/16 11:37 Intake & Output 09/07/16 09/08/16 09/09/16 06:59 06:59 06:59 Intake Total 2314 571 234 Balance 2314 571 234 Weight 102.7 kg 97.8 kg Exam: GENERAL: well-nourished and in no acute distress. Alert and oriented x3 HEAD: Atraumatic, normocephalic. EYES: Pupils equal round and reactive to light, extraocular movements intact, sclera anicteric, conjunctiva are normal. ENT: TMs normal, nares patent, oropharynx clear without exudates. Moist mucous membranes. No oral ulcerations or bleeding gums noted NECK: supple without lymphadenopathy. Trachea is central. No cervical or axillary lymphadenopathy noted. Carotids are 2+, JVD 12 CM LUNGS: Respiration seems nonlabored, no significant accessory muscle action noted. Bibasal fine crackles noted. No dullness noted. CHEST: Palpation of the chest wall shows no significant chest wall tenderness. No other significant abnormalities noted. 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 ABDOMEN: Soft, no significant tenderness appreciated, normoactive bowel sounds. No guarding, no rebound. No rigidity noted . No masses appreciated. EXTREMITIES: Pedal pulses are 1-2+, no calf tenderness noted. No clubbing or cyanosis.trace to 1+ pedal edema noted NEUROLOGICAL: Focused neurological exam showed no significant neurologic deficit. Normal speech, no focal weakness appreciated. PSYCH: Normal mood, normal affect. Judgment and insight within normal limits. SKIN: No significant ecchymosis, rash, ulcerations or signs of pruritus noted. MUSCULOSKELETAL EXAM: No significant joint swelling noted. Results Laboratory Results: 09/07/16 05:15 09/05/16 09/06/16 09/06/16 22:28 04:08 18:38 Troponin I 0.017 < 0.012 NT-Pro-B Natriuret Pep 1690 H Impressions: Chest X-Ray 09/05/16 15:24 IMPRESSION: Cardiomegaly with pulmonary vascular congestion. Small bilateral pleural effusions are identified. The appearance would suggest congestive failure. Clinical correlation is recommended Assessment & Plan - Diagnosis (1) Atrial fibrillation with rapid ventricular response Is this a current diagnosis for this admission?: Yes (2) CHF (congestive heart failure) Qualifiers: Congestive heart failure type: diastolic Congestive heart failure chronicity: acute on chronic Qualified Code(s): I50.33 - Acute on chronic diastolic (congestive) heart failure Is this a current diagnosis for this admission?: Yes (3) Chest discomfort Is this a current diagnosis for this admission?: Yes (4) Diabetes mellitus type 2 in obese Is this a current diagnosis for this admission?: Yes (5) Hyperlipidemia Qualifiers: Hyperlipidemia type: unspecified Qualified Code(s): E78.5 - Hyperlipidemia, unspecified Is this a current diagnosis for this admission?: Yes - Notes Notes: Atrial fibrillation: Seems persistent or chronic. Rate still not well controlled. We will add digoxin and also increase beta demond dose. This is in view of depressed LV EF. Congestive heart failure: Patient seems to have significant exacerbation. 2-D echo shows depressed LVEF at 40-45%. Patient placed on Lasix 40 mg IV every 12. Chest discomfort: There has been no recurrence. A recent nuclear stress test was reported to be negative. Diabetes: Currently stable. Continue current management plan. Dyslipidemia: Continue statin therapy. 2-D echo results reviewed with the patient. - Time Time with patient: Greater than 35 minutes Medications reviewed and adjusted accordingly: Yes
[2016-09-08] MEDS ORDERED: DIGOXIN 0.25 MG TABLET PO ONE (13:45)
[2016-09-08] MEDS: METOPROLOL SUCCINATE 50 MG TAB.SR.24H PO SCH (21:50)
[2016-09-09] MEDS: LANSOPRAZOLE 30 MG TAB.RAP.DR PO SCH (06:23)
[2016-09-09] MEDS: METFORMIN HCL 500 MG TABLET PO SCH ×2 (09:00→17:13)
[2016-09-09] MEDS: DILTIAZEM HCL 180 MG CAPSULE.CR PO SCH ×2 (09:00→22:37)
[2016-09-09] MEDS: ATORVASTATIN CALCIUM 40 MG TABLET PO SCH (09:00)
[2016-09-09] MEDS: DIGOXIN 0.125 MG TABLET PO SCH (09:00)
[2016-09-09] MEDS: SPIRONOLACTONE 25 MG TABLET PO SCH (09:01)
[2016-09-09] MEDS: DULOXETINE HCL 30 MG CAPSULE.DR PO SCH (09:01)
[2016-09-09] MEDS: FUROSEMIDE INJ/PF 40 MG/4 ML SDV IV SCH ×2 (09:02→17:14)
[2016-09-09] MEDS: ALLOPURINOL 300 MG TABLET PO SCH (09:02)
[2016-09-09] MEDS: METOPROLOL SUCCINATE 50 MG TAB.SR.24H PO SCH ×2 (09:02→22:37)
[2016-09-09] MEDS: APIXABAN 5 MG TABLET PO SCH ×2 (09:03→17:14)
--- NOTE | 2016-09-09 16:07 | PDOC PROGRESS REPORT ---
Subjective Progress Note for:: 09/09/16 Subjective:: Patient is seen on morning rounds. She is presently resting fairly comfortably in bed. She denies any chest pain, dizziness or headache. She continues have palpitations. She denies dyspnea at rest. She states she is somewhat short of breath with activity. She continues to be diuresed. She denies any nausea, abdominal pain or diarrhea. She denies any significant myalgias or arthritic pain at the present time. Her daughter is at bedside. Rest of review of systems are negative Physical Exam Vital Signs: Temp Pulse Resp BP Pulse Ox 97.6 F 92 20 108/46 L 93 09/09/16 12:00 09/09/16 12:00 09/09/16 12:00 09/09/16 12:00 09/09/16 12:00 Intake & Output 09/08/16 09/09/16 09/10/16 06:59 06:59 06:59 Intake Total 571 1076 600 Balance 571 1076 600 Weight 97.8 kg 98.3 kg General appearance: PRESENT: no acute distress, well-developed, well-nourished Head exam: PRESENT: atraumatic, normocephalic Eye exam: PRESENT: conjunctiva pink, EOMI, PERRLA. ABSENT: scleral icterus Ear exam: PRESENT: normal external ear exam Mouth exam: PRESENT: moist, tongue midline Neck exam: ABSENT: carotid bruit, JVD, lymphadenopathy, thyromegaly Respiratory exam: PRESENT: rales - bilateral bases Cardiovascular exam: PRESENT: irregular rhythm, +S1, +S2 Pulses: PRESENT: normal dorsalis pedis pul Vascular exam: PRESENT: normal capillary refill GI/Abdominal exam: PRESENT: normal bowel sounds, soft. ABSENT: distended, guarding, mass, organolmegaly, rebound, tenderness Rectal exam: PRESENT: deferred Extremities exam: PRESENT: full ROM. ABSENT: calf tenderness, clubbing, pedal edema Neurological exam: PRESENT: alert, awake, oriented to person, oriented to place , oriented to time, oriented to situation, CN II-XII grossly intact. ABSENT: motor sensory deficit Psychiatric exam: PRESENT: appropriate affect, normal mood. ABSENT: homicidal ideation, suicidal ideation Skin exam: PRESENT: dry, intact, warm. ABSENT: cyanosis, rash Results Laboratory Results: 09/07/16 05:15 09/05/16 09/06/16 09/06/16 22:28 04:08 18:38 Troponin I 0.017 < 0.012 NT-Pro-B Natriuret Pep 1690 H Impressions: Chest X-Ray 09/05/16 15:24 IMPRESSION: Cardiomegaly with pulmonary vascular congestion. Small bilateral pleural effusions are identified. The appearance would suggest congestive failure. Clinical correlation is recommended Assessment & Plan - Diagnosis (1) Atrial fibrillation with rapid ventricular response Is this a current diagnosis for this admission?: YesPlan: Still tachycardic. Continue current medications. Cardiology is titrating medications (2) Acute on chronic systolic (congestive) heart failure Is this a current diagnosis for this admission?: YesPlan: Patient with an EF of 40-45%. Continue twice a day Lasix and discuss with cardiology (3) Anticoagulated Is this a current diagnosis for this admission?: YesPlan: Discussed the need to be cautious to take anticoagulation (4) Diabetes mellitus type 2 in obese Is this a current diagnosis for this admission?: YesPlan: Continue current medications (5) Hyperlipidemia Qualifiers: Hyperlipidemia type: unspecified Qualified Code(s): E78.5 - Hyperlipidemia, unspecified Is this a current diagnosis for this admission?: YesPlan: Continue statin - Time Time Spent with patient: 25-34 minutes Critical Time spent with patient: 15-24 minutes Medications reviewed and adjusted accordingly: Yes Anticipated discharge: Home
--- NOTE | 2016-09-09 18:41 | PDOC PROGRESS REPORT ---
Subjective Progress Note for:: 09/09/16 Subjective:: Patient seems to be doing better with gradual improvement. Pt is denying any chest arm or neck discomfort. Patient denying any PND, orthopnea. Patient denied any sustained palpitations, dizziness, syncope, near syncope. Patient denying any fever chills. Patient denying any other significant discomfort. She and is still having intermittent increased shortness of breath and shortness of breath on minimal exertion. Patient has not ambulated much. Patient is is continuing to be in atrial fibrillation. Rate somewhat better controlled. Have increased Toprol-XL to 100 mg by mouth twice a day. Have also added digoxin. Review of systems: Rest review of systems negative. Medications: Medications have been reviewed. Physical Exam Vital Signs: Temp Pulse Resp BP Pulse Ox 97.8 F 41 L 20 110/77 93 09/09/16 15:33 09/09/16 15:33 09/09/16 15:33 09/09/16 15:33 09/09/16 15:33 Intake & Output 09/08/16 09/09/16 09/10/16 06:59 06:59 06:59 Intake Total 571 1076 1324 Balance 571 1076 1324 Weight 97.8 kg 98.3 kg Exam: GENERAL: well-nourished and in no acute distress. Alert and oriented x3 HEAD: Atraumatic, normocephalic. EYES: Pupils equal round and reactive to light, extraocular movements intact, sclera anicteric, conjunctiva are normal. ENT: TMs normal, nares patent, oropharynx clear without exudates. Moist mucous membranes. No oral ulcerations or bleeding gums noted NECK: supple without lymphadenopathy. Trachea is central. No cervical or axillary lymphadenopathy noted. Carotids are 2+, JVD 10 CM LUNGS: Respiration seems nonlabored, no significant accessory muscle action noted. Bibasal a fine crackles are noted. No wheezes rales or rhonchi noted. No significant dullness noted on percussion. CHEST: Palpation of the chest wall shows no significant chest wall tenderness. No other significant abnormalities noted. 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 ABDOMEN: Soft, no significant tenderness appreciated, normoactive bowel sounds. No guarding, no rebound. No rigidity noted . No masses appreciated. EXTREMITIES: Pedal pulses are 1-2+, no calf tenderness noted. No clubbing or cyanosis.trace to 1+ pedal edema noted NEUROLOGICAL: Focused neurological exam showed no significant neurologic deficit. Normal speech, no focal weakness appreciated. PSYCH: Normal mood, normal affect. Judgment and insight within normal limits. SKIN: No significant ecchymosis, rash, ulcerations or signs of pruritus noted. MUSCULOSKELETAL EXAM: No significant joint swelling noted. Results Laboratory Results: 09/07/16 05:15 09/05/16 09/06/16 09/06/16 22:28 04:08 18:38 Troponin I 0.017 < 0.012 NT-Pro-B Natriuret Pep 1690 H Impressions: Chest X-Ray 09/05/16 15:24 IMPRESSION: Cardiomegaly with pulmonary vascular congestion. Small bilateral pleural effusions are identified. The appearance would suggest congestive failure. Clinical correlation is recommended Assessment & Plan - Diagnosis (1) Atrial fibrillation with rapid ventricular response Is this a current diagnosis for this admission?: Yes (2) CHF (congestive heart failure) Qualifiers: Congestive heart failure type: diastolic Congestive heart failure chronicity: acute on chronic Qualified Code(s): I50.33 - Acute on chronic diastolic (congestive) heart failure Is this a current diagnosis for this admission?: Yes (3) Chest discomfort Is this a current diagnosis for this admission?: Yes (4) Diabetes mellitus type 2 in obese Is this a current diagnosis for this admission?: Yes (5) Hyperlipidemia Qualifiers: Hyperlipidemia type: unspecified Qualified Code(s): E78.5 - Hyperlipidemia, unspecified Is this a current diagnosis for this admission?: Yes - Notes Notes: Atrial fibrillation: Seems persistent or chronic. Rate still not well controlled. Was placed on digoxin and also increase beta demond dose to metoprolol succinate at 100 mg by mouth twice a day. This is in view of depressed LV EF. Aim would be to gradually taper off Cardizem. Congestive heart failure: Patient seems to have significant exacerbation. 2-D echo shows depressed LVEF at 40-45%. Patient on Lasix 40 mg IV every 12. Chest discomfort: There has been no recurrence. A recent nuclear stress test was reported to be negative. Diabetes: Currently stable. Continue current management plan. Dyslipidemia: Continue statin therapy. 2-D echo results reviewed with the patient. Management plans discussed. - Time Time with patient: Greater than 35 minutes - CODE STATUS was discussed, patient remains full code. Surrogate decision-maker unchanged. Multiple medical problems were addressed.More than 50% of the time spent coordinating care, discussing management plans with involved caregivers. Management plans discussed with involved personnels. Medical decision making was of moderate complexity. Medications reviewed and adjusted accordingly: Yes
[2016-09-10] MEDS: LANSOPRAZOLE 30 MG TAB.RAP.DR PO SCH (06:48)
[2016-09-10 08:16] VITALS: BP 124/72
[2016-09-10] MEDS: ATORVASTATIN CALCIUM 40 MG TABLET PO SCH (09:44)
[2016-09-10] MEDS: ALLOPURINOL 300 MG TABLET PO SCH (09:45)
[2016-09-10] MEDS: DULOXETINE HCL 30 MG CAPSULE.DR PO SCH (09:45)
[2016-09-10] MEDS: METOPROLOL SUCCINATE 50 MG TAB.SR.24H PO SCH (09:45)
[2016-09-10] MEDS: SPIRONOLACTONE 25 MG TABLET PO SCH (09:46)
[2016-09-10] MEDS: METFORMIN HCL 500 MG TABLET PO SCH (09:46)
[2016-09-10] MEDS: DILTIAZEM HCL 180 MG CAPSULE.CR PO SCH (09:46)
[2016-09-10] MEDS: DIGOXIN 0.125 MG TABLET PO SCH (09:46)
[2016-09-10] MEDS: APIXABAN 5 MG TABLET PO SCH (09:47)
[2016-09-10] MEDS ORDERED: FUROSEMIDE 40 MG TABLET PO SCH (10:00)
[2016-09-10 10:06] LABS: ANION GAP 11 (5-19); BLOOD UREA NITROGEN 30 mg/dL (7-20); CALCIUM 10.2 mg/dL (8.4-10.2); CARBON DIOXIDE 28 mmol/L (22-30); CHLORIDE 99 mmol/L (98-107); CREATININE RESULT 0.73 mg/dL (0.52-1.25); GLUCOSE 222 mg/dL (75-110); MAGNESIUM 1.8 mg/dL (1.6-2.3); POTASSIUM 3.6 mmol/L (3.6-5.0); SODIUM 138.2 mmol/L (137-145)
--- NOTE | 2016-09-10 17:01 | PDOC DISCHARGE SUMMARY ---
General - Admit/Disc Date/PCP Admission Date/Primary Care Provider: 09/05/16 20:49 KADEN SYLVESTER PA-C Discharge Date: 09/10/16 - Discharge Diagnosis (1) Atrial fibrillation with rapid ventricular response Is this a current diagnosis for this admission?: YesSummary: Patient was seen by cardiology, Dr. Cantu. Her medications titrated for rate control. She had Eliquis 5 mg twice a day for anticoagulation. She's had intermittent periods is sinus rhythm with now rate controlled atrial fibrillation. She will follow up with Dr. Marilee Watts at his next available appointment as an outpatient. Her diltiazem was increased 180 mg twice a day. Metoprolol 100 mg twice a day. (2) Acute on chronic systolic (congestive) heart failure Is this a current diagnosis for this admission?: YesSummary: Patient with known EF of 40-45% with test x-ray showing increased pulmonary vasculature. Patient was aggressively diuresed with Lasix 40 mg IV twice a day. She had a reduction in her body weight of 10 pounds. Her lower extremity edema has resolved. Her shortness of breath is greatly improved. We discussed the need for her to weigh herself daily, record weights. She is to report awakening of greater than 3 pounds in 24. Or 5 pounds a week. Discussed sneaked for salt reduction in her diet as well. (3) Anticoagulated Is this a current diagnosis for this admission?: YesSummary: Patient was reminded to be especially careful sharp objects because of tendency deplete on Eliquis therapy. (4) Diabetes mellitus type 2 in obese Is this a current diagnosis for this admission?: YesSummary: Continue current medications (5) Hyperlipidemia Is this a current diagnosis for this admission?: Yes - Additional Information Resuscitation Status: Full Code Discharge Diet: Cardiac, Diabetic Discharge Activity: Activity As Tolerated, Balance Activity w/Rest, Weigh Daily Home Medications: Albuterol Sulfate [Albuterol Sulfate 2.5mg/3 mL] 1 vial NEB TID 09/05/16 Allopurinol [Zyloprim 300 mg Tablet] 300 mg PO DAILY 09/05/16 Apixaban [Eliquis 5 mg Tablet] 5 mg PO BID 09/05/16 Atorvastatin Calcium [Lipitor 40 mg Tablet] 40 mg PO DAILY 09/05/16 Duloxetine HCl [Cymbalta] 60 mg PO DAILY 09/05/16 Esomeprazole Magnesium [Nexium] 40 mg PO DAILY 09/05/16 Metformin HCl [Metformin HCl ER] 1,000 mg PO BID 09/05/16 Acetaminophen [Tylenol 325 mg Tablet] 650 mg PO Q4HP PRN tablet 09/10/16 Digoxin [Lanoxin 0.125 mg Tablet] 0.125 mg PO DAILY #30 tablet 09/10/16 Diltiazem HCl [Cardizem Cd 180 mg Capsule] 180 mg PO Q12 #60 capsule.cr Furosemide [Lasix] 40 mg PO DAILY #7 tablet 09/10/16 Metoprolol Tartrate [Lopressor] 100 mg PO BID #60 tablet 09/10/16 Potassium Chloride 20 meq PO DAILY #7 tablet.er 09/10/16 Spironolactone [Aldactone 25 mg Tablet] 25 mg PO DAILY #30 tablet 09/10/16 History of Present Illness History of Present Illness: JANICE CONCEPCION is a 71 year old female Patient presented to [facility] emergency department on 09/05, with complaints of rapid heart palpitations and shortness of breath. She was found to be in rapid atrial fibrillation with ventricular response of 140-160. She was started on IV Cardizem by the ER provider. Chest x-ray showed increasing pulmonary edema. She had bilateral lower extremity edema which she states been worsening home. She has a history of mild systolic congestive heart failure and EF of 40-45%. She received IV Lasix was referred to the hospitalist service for admission. Hospital Course Hospital Course: Patient was admitted to [facility] on telemetry. She was aggressively diuresed with IV Lasix 40 mg twice a day. Her rate was controlled on IV Cardizem, she was therefore placed on by mouth Cardizem was discontinued. Dr. Aleman, patient consult for cardiology. Medications were maximized. Today her weight is down 10 pounds since admission. Her breathing is much improved. She is able to ambulate without oxygen without any dyspnea. She has no further lower extremity edema. She has been instructed on the need to weigh herself daily and record, reporting weight gain 3 pounds Creator in 24 hours or 5 pounds or greater in a week. She was instructed on the need to be compliant with low- sodium diet as well. She will follow-up with her primary care provider within one week and Dr. Cantu as next available. Physical Exam Vital Signs: Temp Pulse Resp BP Pulse Ox 98.2 F 90 18 124/72 97 09/10/16 11:37 09/10/16 11:37 09/10/16 11:37 09/10/16 11:37 09/10/16 11:37 Intake & Output 09/09/16 09/10/16 09/11/16 06:59 06:59 06:59 Intake Total 1076 2046 Balance 1076 2046 Weight 98.3 kg 96.7 kg General appearance: PRESENT: no acute distress, obese, well-developed, well- nourished Head exam: PRESENT: atraumatic, normocephalic Eye exam: PRESENT: conjunctiva pink, EOMI, PERRLA. ABSENT: scleral icterus Ear exam: PRESENT: normal external ear exam Mouth exam: PRESENT: moist, tongue midline Neck exam: ABSENT: carotid bruit, JVD, lymphadenopathy, thyromegaly Respiratory exam: PRESENT: clear to auscultation [place]. ABSENT: rales, rhonchi, wheezes Cardiovascular exam: PRESENT: irregular rhythm. ABSENT: diastolic murmur, rubs , systolic murmur Pulses: PRESENT: normal dorsalis pedis pul Vascular exam: PRESENT: normal capillary refill GI/Abdominal exam: PRESENT: normal bowel sounds, soft. ABSENT: distended, guarding, mass, organolmegaly, rebound, tenderness Rectal exam: PRESENT: deferred Extremities exam: PRESENT: full ROM. ABSENT: calf tenderness, clubbing, pedal edema Neurological exam: PRESENT: alert, awake, oriented to person, oriented to place , oriented to time, oriented to situation, CN II-XII grossly intact. ABSENT: motor sensory deficit Psychiatric exam: PRESENT: appropriate affect, normal mood. ABSENT: homicidal ideation, suicidal ideation Skin exam: PRESENT: dry, intact, warm. ABSENT: cyanosis, rash Results Laboratory Results: 09/10/16 09:26 09/10/16 09:26 Sodium 138.2 Potassium 3.6 Chloride 99 Carbon Dioxide 28 Anion Gap 11 BUN 30 H Creatinine 0.73 Est GFR ( Amer) > 60 Est GFR (Non-Af Amer) > 60 Glucose 222 H Calcium 10.2 Magnesium 1.8 09/05/16 09/06/16 09/06/16 22:28 04:08 18:38 Troponin I 0.017 < 0.012 NT-Pro-B Natriuret Pep 1690 H Impressions: Chest X-Ray 09/05/16 15:24 IMPRESSION: Cardiomegaly with pulmonary vascular congestion. Small bilateral pleural effusions are identified. The appearance would suggest congestive failure. Clinical correlation is recommended Qualifiers [place] BEING DISCHARGED WITH ANY OF THE FOLLOWING DIAGNOSIS?: No Plan Discharge Plan: Home with daughter Time Spent: Less than 30 Minutes
== END 2016-09-10 12:04 | disposition home or self-care (01) | DRG 308 ==
LOC: ER 14:56 → UNDOADMIN 19:54 → EH 19:54 → 3W 22:52
PROVIDERS: ADMIT Family Medicine; ATTEND Family Medicine
DX: I48.1 Persistent atrial fibrillation (principal); I50.33 Acute on chronic diastolic (congestive) heart failure; I48.2 Chronic atrial fibrillation; M10.9 Gout, unspecified; E11.9 Type 2 diabetes mellitus without complications; K21.9 Gastro-esophageal reflux disease without esophagitis; F32.9 Major depressive disorder, single episode, unspecified; E78.5 Hyperlipidemia, unspecified; Z79.01 Long term (current) use of anticoagulants; Z79.84 Long term (current) use of oral hypoglycemic drugs; Z79.899 Other long term (current) drug therapy; Z79.51 Long term (current) use of inhaled steroids
CPT/HCPCS: 36415; 71020; 80048; 80053; 81001; 82550; 82553; 82962; 83735; 83880; 84443; 84484; 85025; 93005; 93010; 93306; 94640; 96374; 96375; 99291; J1940; J3490; J7512; J7620

== ENCOUNTER 2017-04-06 19:03 | Emergency (ER) | payer MEDICARE, MEDICAID ==
--- NOTE | 2017-04-06 21:05 | EKG REPORT ---
SEVERITY:- ABNORMAL ECG - ATRIAL FIBRILLATION, V-RATE 63-106 PROBABLE LVH WITH SECONDARY REPOL ABNRM : Confirmed by: Nubia Boyd MD 06-Apr-2017 21:04:03
--- NOTE | 2017-04-06 21:53 | ER Document Report ---
ED General - General Chief Complaint: Abnormal Lab Results Stated Complaint: CHEST PAIN Time Seen by Provider: 04/06/17 21:35 Mode of Arrival: Ambulatory Information source: Patient Notes: This is a 71-year-old female with a history of hypertension, diabetes, atrial fibrillation (Xarelto), CHF, remote history of ovarian and breast cancer. Patient presents to the emergency room because of "abnormal vital signs". The patient states she was in the primary care doctor's office today and told that her blood pressure was elevated additionally they have told her that she had atrial fibrillation. Patient has a long history of atrial fibrillation for which he takes Eliquis and metoprolol. The patient denies any chest pain, shortness of breath, abdominal pain. TRAVEL OUTSIDE OF THE [place] IN LAST 30 DAYS: No - HPI Onset: Just prior to arrival Onset/Duration: Gradual Quality of pain: No pain Severity: None Pain Level: Denies Associated symptoms: denies: Chest pain, Fever, Shortness of breath Exacerbated by: Denies Relieved by: Denies Similar symptoms previously: Yes Recently seen / treated by doctor: Yes - Related Data Allergies/Adverse Reactions: oxycodone HCl [From Percocet] Adverse Reaction (Verified 09/05/16 15:21) Past Medical History - General Information source: Patient - Social History Smoking Status: Never Smoker Cigarette use (# per day): No Chew tobacco use (# tins/day): No Frequency of alcohol use: None Drug Abuse: None Lives with: Family Family History: Reviewed & Not Pertinent Patient has suicidal ideation: No Patient has homicidal ideation: No - Past Medical History Cardiac Medical History: Reports: Hx Hypercholesterolemia Denies: Hx Congestive Heart Failure, Hx DVT, Hx Heart Attack, Hx Hypertension , Hx Pulmonary Embolism Pulmonary Medical History: Denies: Hx Asthma, Hx COPD Neurological Medical History: Denies: Hx Seizures Endocrine Medical History: Reports: Hx Diabetes Mellitus Type 2. Denies: Hx Diabetes Mellitus Type 1, Hx Hyperthyroidism, Hx Hypothyroidism Renal/ Medical History: Denies: Hx Peritoneal Dialysis Malignancy Medical History: Reports: Hx Breast Cancer GI Medical History: Reports: Hx Gastroesophageal Reflux Disease. Denies: Hx Cirrhosis, Hx Hepatitis Musculoskeltal Medical History: Reports Hx Arthritis, Reports Hx Gout Psychiatric Medical History: Reports: Hx Depression - Mild history, after her 's 12 years ago. Infectious Medical History: Denies: Hx Hepatitis Past Surgical History: Reports: Hx Appendectomy, Hx Bowel Surgery, Hx Cholecystectomy, Hx Mastectomy - Immunizations Hx Diphtheria, Pertussis, Tetanus Vaccination: No Review of Systems - Review of Systems Constitutional: denies: Chills, Fever EENT: No symptoms reported Cardiovascular: See HPI Respiratory: No symptoms reported Gastrointestinal: No symptoms reported Genitourinary: No symptoms reported Female Genitourinary: No symptoms reported Musculoskeletal: No symptoms reported Skin: No symptoms reported Hematologic/Lymphatic: No symptoms reported Neurological/Psychological: No symptoms reported Physical Exam - Vital signs Vitals: Temp Pulse Resp BP Pulse Ox 99.0 F 86 18 135/73 H 99 04/06/17 19:45 04/06/17 19:45 04/06/17 19:45 04/06/17 19:45 04/06/17 19:45 Notes: Physical exam: GENERAL: 71-year-old female, alert and oriented 3, no acute distress HEAD: Atraumatic, normocephalic. EYES: Pupils equal round and reactive to light, extraocular movements intact, sclera anicteric, conjunctiva are normal. ENT: TMs normal, nares patent, oropharynx clear without exudates. Moist mucous membranes. NECK: Normal range of motion, supple without obvious mass or JVD. LUNGS: Breath sounds clear to auscultation bilaterally and equal. No wheezes rales or rhonchi. HEART: Regular rate and rhythm without murmurs, rubs or gallops. ABDOMEN: Soft, normoactive bowel sounds. No tenderness to palpation. No guarding, no rebound. No masses appreciated. EXTREMITIES: Normal range of motion, no pitting or edema. No clubbing or cyanosis. NEUROLOGICAL: Cranial nerves II through XII grossly intact. Normal speech, moving all extremities. PSYCH: Normal mood, normal affect. SKIN: Warm, Dry, normal turgor, no rashes or lesions noted. Course - Re-evaluation Re-evalutation: 04/06/17 23:45 Note: The patient was sent in for atrial fibrillation, elevated glucose and an elevated blood pressure in clinic. Patient has been without chest pain or shortness of breath. Her blood pressure was stable on arrival. She is in A. fib but has a history of atrial fibrillation and is currently on Eliquis and metoprolol. She is currently adequately rate controlled. Her glucose is 181 which is mildly elevated. I have advised her to follow-up with her primary care doctor and continue the medicines. Her labs also showed mild elevations in LFTs. She does not drink. I suspect this may be due to the metformin. I have discussed this with her and her daughter is at the bedside. I have recommended she follow-up with the primary care doctor have repeat labs and if they remain elevated will continue to rise, they may have to cut down on the metformin were to discontinue it altogether. 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 - Vital Signs Vital signs: Temp Pulse Resp BP Pulse Ox 99.0 F 86 18 135/73 H 99 04/06/17 19:45 04/06/17 19:45 04/06/17 19:45 04/06/17 19:45 04/06/17 19:45 - Laboratory Result Diagrams: 04/06/17 22:50 04/06/17 22:50 Laboratory results interpreted by me: 04/06/17 04/06/17 22:50 22:50 RDW 16.2 H Sodium 136.9 L Chloride 97 L BUN 28 H Glucose 181 H Calcium 10.5 H Direct Bilirubin 0.6 H AST 42 H ALT 55 H Alkaline Phosphatase 145 H Digoxin 0.67 L - Diagnostic Test Radiology reviewed: Image reviewed, Reports reviewed - Chest x-ray shows no infiltrates. There is some cardiomegaly. Discharge - Discharge Clinical Impression: Atrial fibrillation, Hypertension Condition: Stable Disposition: HOME, SELF-CARE Additional Instructions: Thank you for choosing [facility] for your care. The examination and treatment you have received in the Emergency Department today has been rendered on an emergency basis only and is not intended to be a substitute for complete medical care. You should contact your follow-up physician as it is important that he or she examine you for any new or remaining problems. If given a copy of any lab tests or radiology reports, please bring them with you when you see your physician. If your problem worsens or new symptoms appear and you are unable to arrange prompt follow-up care, return to the Emergency Department. Specific signs to look out for: Any chest pain, shortness of breath, increasing weakness. Any other instructions: As we discussed, your liver enzyme tests were mildly elevated. I would follow- up with your doctor for repeat in the next few weeks. If these levels continue to rise, you may need to come off your metformin. Continue current medicines. Follow-up with your airline station agent as planned.
--- NOTE | 2017-04-06 22:38 | RADIOLOGY REPORT (SQ) ---
EXAM DESCRIPTION: CHEST SINGLE VIEW COMPLETED DATE/TIME: 04/06/2017 10:15 pm REASON FOR STUDY: palpitations COMPARISON: August 2016 EXAM PARAMETERS: NUMBER OF VIEWS: One view. TECHNIQUE: Single frontal radiographic view of the chest acquired. RADIATION DOSE: NA LIMITATIONS: None. FINDINGS: LUNGS AND PLEURA: No opacities, masses or pneumothorax. No pleural effusion. MEDIASTINUM AND HILAR STRUCTURES: No masses. Contour normal. HEART AND VASCULAR STRUCTURES: Cardiac silhouette is enlarged. BONES: No acute findings. HARDWARE: None in the chest. OTHER: No other significant finding. IMPRESSION: Cardiomegaly. No acute consolidations or pleural effusions are identified. Other findi ngs as noted above TECHNICAL DOCUMENTATION: JOB ID: [id number]
[2017-04-06 23:02] LABS: ABSOLUTE BASOPHILS # (AUTO) 0.1 10^3/uL (0.0-0.2); ABSOLUTE EOSINOPHILS # (AUTO) 0.3 10^3/uL (0.0-0.6); ABSOLUTE MONOCYTES (AUTO) 0.7 10^3/uL (0.1-1.4); ABSOLUTE NEUT (AUTO) 6.9 10^3/uL (1.7-8.2); EOSINOPHILS % (AUTO) 2.9 % (0-6); HEMATOCRIT 41.2 % (36.0-47.0); HEMOGLOBIN 14.1 g/dL (12.0-15.5); HGB HCT DIFFERENCE 1.1; LYMPHOCYTES % (AUTO) 20.4 % (13-45); MEAN CORPUSCULAR HEMOGLOBIN 30.5 pg (27.0-33.4); MEAN CORPUSCULAR HGB CONC 34.2 g/dL (32.0-36.0); MEAN CORPUSCULAR VOLUME 89 fl (80-97); MONOCYTES % (AUTO) 7.2 % (3-13); RED BLOOD COUNT 4.62 10^6/uL (3.72-5.28); RED CELL DISTRIBUTION WIDTH 16.2 % (11.5-14.0); SEGMENTED NEUTROPHILS % (AUTO) 68.5 % (42-78); WHITE BLOOD COUNT 10.1 10^3/uL (4.0-10.5)
[2017-04-06] MEDS ORDERED: HYDROCODONE/ACETAMINOPHEN 5-325 MG 6 TAB/DSPK PO PRN (23:06)
[2017-04-06 23:30] LABS: ALANINE AMINOTRANSFERASE 55 U/L (9-52); ALKALINE PHOSPHATASE 145 U/L (38-126); ANION GAP 11 (5-19); ASPARTATE AMINO TRANSFERASE 42 U/L (14-36); BILIRUBIN,DIRECT 0.6 mg/dL (0.0-0.4); BILIRUBIN,TOTAL 1.1 mg/dL (0.2-1.3); BLOOD UREA NITROGEN 28 mg/dL (7-20); CALCIUM 10.5 mg/dL (8.4-10.2); CARBON DIOXIDE 29 mmol/L (22-30); CHLORIDE 97 mmol/L (98-107); CREATINE KINASE 32 U/L (30-135); CREATININE RESULT 0.82 mg/dL (0.52-1.25); DIGOXIN 0.67 ng/mL (0.8-2.0); GLUCOSE 181 mg/dL (75-110); POTASSIUM 4.2 mmol/L (3.6-5.0); SODIUM 136.9 mmol/L (137-145); TOTAL PROTEIN 6.7 g/dL (6.3-8.2)
[2017-04-06 23:31] LABS: TROPONIN I < 0.012 ng/mL
[2017-04-06 23:57] VITALS: BP 131/75
== END 2017-04-07 00:14 | disposition home or self-care (01) ==
LOC: ER 19:03
DX: I48.91 Unspecified atrial fibrillation (principal); I10 Essential (primary) hypertension; R07.9 Chest pain, unspecified; E78.00 Pure hypercholesterolemia, unspecified; E11.9 Type 2 diabetes mellitus without complications; Z88.6 Allergy status to analgesic agent; Z85.3 Personal history of malignant neoplasm of breast; Z90.10 Acquired absence of unspecified breast and nipple
CPT/HCPCS: 36415; 71010; 80053; 80162; 82550; 82553; 84484; 85025; 93005; 93010; 99284

== ENCOUNTER 2017-05-25 16:05 | Inpatient (IN) | payer MEDICARE, MEDICAID ==
--- NOTE | 2017-05-25 16:49 | ER Document Report ---
ED Medical Screen (RME) - General Chief Complaint: Abdominal Pain Stated Complaint: PAINFUL URINATION Time Seen by Provider: 05/25/17 16:44 Mode of Arrival: Ambulatory Information source: Patient Notes: Patient states that she started with dysuria and hematuria last week. She states she went to her primary care doctor all 5 days last week and he was unable to find anything wrong. However he eventually did start her on 5 days of Macrobid. She states this helped the symptoms some but they have now returned. She states she has hematuria and dysuria. She is also now having incontinence. She also has fever chills and weakness. TRAVEL OUTSIDE OF THE [place] IN LAST 30 DAYS: No - Related Data Allergies/Adverse Reactions: oxycodone HCl [From Percocet] Adverse Reaction (Verified 05/25/17 16:11) Home Medications: Current Home Medications Insulin Glargine,Hum.rec.anlog [Lantus] 5 unit SQ QHS 05/25/17 [History] Past Medical History - Past Medical History Cardiac Medical History: Reports: Hx Hypercholesterolemia Denies: Hx Congestive Heart Failure, Hx DVT, Hx Heart Attack, Hx Hypertension , Hx Pulmonary Embolism Pulmonary Medical History: Denies: Hx Asthma, Hx COPD Neurological Medical History: Denies: Hx Seizures Endocrine Medical History: Reports: Hx Diabetes Mellitus Type 2. Denies: Hx Diabetes Mellitus Type 1, Hx Hyperthyroidism, Hx Hypothyroidism Renal/ Medical History: Denies: Hx Peritoneal Dialysis Malignancy Medical History: Reports: Hx Breast Cancer GI Medical History: Reports: Hx Gastroesophageal Reflux Disease. Denies: Hx Cirrhosis, Hx Hepatitis Musculoskeltal Medical History: Reports Hx Arthritis, Reports Hx Gout Psychiatric Medical History: Reports: Hx Depression - Mild history, after her 's 12 years ago. Infectious Medical History: Denies: Hx Hepatitis Past Surgical History: Reports: Hx Appendectomy, Hx Bowel Surgery, Hx Cholecystectomy, Hx Mastectomy - Immunizations Hx Diphtheria, Pertussis, Tetanus Vaccination: No Physical Exam - Vital signs Vitals: Temp Pulse Resp BP Pulse Ox 98.9 F 55 L 16 127/63 H 97 05/25/17 16:12 05/25/17 16:12 05/25/17 16:12 05/25/17 16:12 05/25/17 16:12 Course - Vital Signs Vital signs: Temp Pulse Resp BP Pulse Ox 98.9 F 55 L 16 127/63 H 97 05/25/17 16:12 05/25/17 16:12 05/25/17 16:12 05/25/17 16:12 05/25/17 16:12
[2017-05-25 17:57] LABS: ABSOLUTE BASOPHILS # (AUTO) 0.1 10^3/uL (0.0-0.2); ABSOLUTE NEUT (AUTO) 9.5 10^3/uL (1.7-8.2); BASOPHILS % (AUTO) 0.7 % (0-2); EOSINOPHILS % (AUTO) 0.3 % (0-6); HEMATOCRIT 38.5 % (36.0-47.0); HEMOGLOBIN 12.9 g/dL (12.0-15.5); HGB HCT DIFFERENCE 0.2; LYMPHOCYTES % (AUTO) 8.6 % (13-45); MEAN CORPUSCULAR HEMOGLOBIN 29.8 pg (27.0-33.4); MEAN CORPUSCULAR HGB CONC 33.4 g/dL (32.0-36.0); MEAN CORPUSCULAR VOLUME 89 fl (80-97); MONOCYTES % (AUTO) 8.4 % (3-13); RED BLOOD COUNT 4.32 10^6/uL (3.72-5.28); RED CELL DISTRIBUTION WIDTH 16.6 % (11.5-14.0); WHITE BLOOD COUNT 11.6 10^3/uL (4.0-10.5)
[2017-05-25 18:33] LABS: APPEARANCE,URINE TURBID; BILIRUBIN,URINE NEGATIVE (NEGATIVE); GLUCOSE, URINE NEGATIVE (NEGATIVE); KETONES,URINE NEGATIVE (NEGATIVE); LEUKOCYTE ESTERASE,URINE LARGE (NEGATIVE); NITRITE,URINE NEGATIVE (NEGATIVE); PROTEIN,URINE 100 mg/dL (NEGATIVE); URINE SPECIFIC GRAVITY 1.017
[2017-05-25] MEDS ORDERED: NORMAL SALINE 1000 ML 1,000 ML IV ONE (18:57)
[2017-05-25] MEDS ORDERED: CEFTRIAXONE 1 GM/D5W RTU 1 GM/50 ML RTUPB IV ONE (18:58)
[2017-05-25 19:08] LABS: ALANINE AMINOTRANSFERASE 62 U/L (9-52); ALBUMIN 3.2 g/dL (3.5-5.0); ALKALINE PHOSPHATASE 161 U/L (38-126); ANION GAP 10 (5-19); ASPARTATE AMINO TRANSFERASE 38 U/L (14-36); BILIRUBIN,DIRECT 0.7 mg/dL (0.0-0.4); BILIRUBIN,TOTAL 1.7 mg/dL (0.2-1.3); BLOOD UREA NITROGEN 18 mg/dL (7-20); CALCIUM 9.5 mg/dL (8.4-10.2); CARBON DIOXIDE 26 mmol/L (22-30); CHLORIDE 96 mmol/L (98-107); CREATININE RESULT 0.83 mg/dL (0.52-1.25); GLUCOSE 215 mg/dL (75-110); POTASSIUM 4.6 mmol/L (3.6-5.0); SODIUM 132.2 mmol/L (137-145); TOTAL PROTEIN 5.7 g/dL (6.3-8.2)
--- NOTE | 2017-05-25 19:34 | RADIOLOGY REPORT (SQ) ---
EXAM DESCRIPTION: CT ABD/PELVIS NO ORAL OR IV COMPLETED DATE/TIME: 05/25/2017 7:19 pm REASON FOR STUDY: eval infected stone COMPARISON: None. TECHNIQUE: CT scan of the abdomen and pelvis performed without intravenous or oral contrast. Images reviewed with lung, soft tissue, and bone windows. Reconstructed coronal and sagittal MPR images revi ewed. All images stored on PACS. All CT scanners at this facility use dose modulation, iterative reconstruction, and/or weight based d osing when appropriate to reduce radiation dose to as low as reasonably achievable (ALARA). [facility]: Dose Right [facility]: CareDose [facility]: Dose Right [facility]: Teradose 4D [facility]: [employer] Systems RADIATION DOSE: Up-to-date CT equipment and radiation dose reduction techniques were employed. CTDIv ol: 16.4 mGy. DLP: 820 mGy-cm.mGy. LIMITATIONS: None. FINDINGS: LOWER CHEST: No significant findings. No nodules or infiltrates. NON-CONTRASTED LIVER, SPLEEN, ADRENALS: Evaluation limited by lack of IV contrast. No identified sign ificant masses. PANCREAS: No masses. No peripancreatic inflammatory changes. GALLBLADDER: No identified stones by CT criteria. No inflammatory changes to suggest cholecystitis. RIGHT KIDNEY AND URETER: No suspicious masses. Assessment limited by lack of IV contrast. No signif icant calcifications. No hydronephrosis or hydroureter. LEFT KIDNEY AND URETER: No suspicious masses. Assessment limited by lack of IV contrast. No signifi cant calcifications. No hydronephrosis or hydroureter. AORTA AND RETROPERITONEUM: No aneurysm. No retroperitoneal masses or adenopathy. BOWEL AND PERITONEAL CAVITY: No obvious masses or inflammatory changes. No free fluid. APPENDIX: Left hip replacement. PELVIS, BLADDER, AND ABDOMINAL WALL:No abnormal masses. No free fluid. Bladder normal. BONES: No significant findings. OTHER: No other significant finding. IMPRESSION: NO SIGNIFICANT OR ACUTE PROCESS IN THE ABDOMEN OR PELVIS. COMMENT: Quality ID # [id number]: Final reports with documentation of one or more dose reduction techniques (e.g., Automated exposure control, adjustment of the mA and/or kV according to patient size, use of iterative reconstruction technique) TECHNICAL DOCUMENTATION: JOB ID: [id number] [email or web address]- All Rights Reserved
[2017-05-25] MEDS ORDERED: ONDANSETRON HCL INJ/PF 4 MG/2 ML SDV IV PRN (19:39)
[2017-05-25] MEDS ORDERED: DEXTROSE 50%-WATER 25 GM/50 ML DISP.SYRIN IV PRN ×2 (19:39)
[2017-05-25] MEDS ORDERED: GLUCAGON,HUMAN RECOMB 1 MG INJ IM PRN (19:39)
[2017-05-25] MEDS ORDERED: IPRATROPIUM/ALBUTEROL 0.5-2.5 MG/3 ML AMPUL NEB PRN (19:39)
[2017-05-25] MEDS ORDERED: DEXTROSE 40% GEL 15 GM TUBE PO PRN ×2 (19:39)
--- NOTE | 2017-05-25 19:41 | ER Document Report ---
ED General - General Chief Complaint: Abdominal Pain Stated Complaint: PAINFUL URINATION Time Seen by Provider: 05/25/17 16:44 Mode of Arrival: Ambulatory Notes: Patient is a 71-year-old female with a past medical history of diabetes, hypertension, atrial fibrillation, who presents with 1 week of progressively worsening generalized abdominal pain worse in the flanks as well as nausea, dry heaving, and fever. Patient does describe the pain in her flanks as being worse toward her left, dull, constant and throbbing. She was seen by her primary care doctor and diagnosed with having a urinary tract infection. She was started on nitrofurantoin but states that she did not have resolution of her symptoms and actually got worse. Nothing seems to otherwise worsen her symptoms. She does not have a history of similar symptoms in the past. She saw her java core developer today who is concerned about her general appearance and referred to the emergency department. TRAVEL OUTSIDE OF THE [place] IN LAST 30 DAYS: No - Related Data Allergies/Adverse Reactions: oxycodone HCl [From Percocet] Adverse Reaction (Verified 05/25/17 16:11) Home Medications: Current Home Medications Insulin Glargine,Hum.rec.anlog [Lantus] 5 unit SQ QHS 05/25/17 [History] Past Medical History - General Information source: Patient - Social History Smoking Status: Never Smoker Frequency of alcohol use: None Drug Abuse: None Lives with: Family Family History: Reviewed & Not Pertinent Patient has suicidal ideation: No Patient has homicidal ideation: No - Past Medical History Cardiac Medical History: Reports: Hx Hypercholesterolemia Denies: Hx Congestive Heart Failure, Hx DVT, Hx Heart Attack, Hx Hypertension , Hx Pulmonary Embolism Pulmonary Medical History: Denies: Hx Asthma, Hx COPD Neurological Medical History: Denies: Hx Seizures Endocrine Medical History: Reports: Hx Diabetes Mellitus Type 2. Denies: Hx Diabetes Mellitus Type 1, Hx Hyperthyroidism, Hx Hypothyroidism Renal/ Medical History: Denies: Hx Peritoneal Dialysis Malignancy Medical History: Reports: Hx Breast Cancer GI Medical History: Reports: Hx Gastroesophageal Reflux Disease. Denies: Hx Cirrhosis, Hx Hepatitis Musculoskeltal Medical History: Reports Hx Arthritis, Reports Hx Gout Psychiatric Medical History: Reports: Hx Depression - Mild history, after her 's 12 years ago. Infectious Medical History: Denies: Hx Hepatitis Past Surgical History: Reports: Hx Appendectomy, Hx Bowel Surgery, Hx Cholecystectomy, Hx Mastectomy - Immunizations Hx Diphtheria, Pertussis, Tetanus Vaccination: No Review of Systems - Review of Systems Notes: Constitutional: Positive for fever. HENT: Negative for sore throat. Eyes: Negative for visual changes. Cardiovascular: Negative for chest pain. Respiratory: Negative for shortness of breath. Gastrointestinal: Positive for abdominal pain and nausea Genitourinary: Positive for dysuria. Musculoskeletal: Negative for back pain. Skin: Negative for rash. Neurological: Negative for headaches, weakness or numbness. 10 point ROS negative except as marked above and in HPI. Physical Exam - Vital signs Vitals: Temp Pulse Resp BP Pulse Ox 98.9 F 55 L 16 127/63 H 97 05/25/17 16:12 05/25/17 16:12 05/25/17 16:12 05/25/17 16:12 05/25/17 16:12 Interpretation: Normal Notes: PHYSICAL EXAMINATION: GENERAL: Appears uncomfortable, somewhat unwell but in no acute distress HEAD: Atraumatic, normocephalic. EYES: Pupils equal round and reactive to light, extraocular movements intact, sclera anicteric, conjunctiva are normal. ENT: nares patent, oropharynx clear without exudates. Moderately dry mucous membranes. NECK: Normal range of motion, supple without lymphadenopathy LUNGS: Breath sounds clear to auscultation bilaterally and equal. No wheezes rales or rhonchi. HEART: Irregularly irregular without murmurs ABDOMEN: Soft, nontender, normoactive bowel sounds. No guarding, no rebound. No masses appreciated. Bilateral flank tenderness much more pronounced in the left EXTREMITIES: Normal range of motion, no pitting or edema. No cyanosis. NEUROLOGICAL: No focal neurological deficits. Moves all extremities spontaneously and on command. PSYCH: Normal mood, normal affect. SKIN: Warm, Dry, normal turgor, no rashes or lesions noted. Course - Re-evaluation Re-evalutation: 05/25/17 19:38 Patient presents with bilateral flank pain more notable on the left on examination with a urinalysis and clinical history consistent with acute pyelonephritis. Thankfully, the patient's vitals do not suggest sepsis. However, she was ready treated with a course of nitrofurantoin prior to having flank pain or constitutional symptoms worrisome for possible resistance pattern. Moreover patient has been having dry heaving and difficulty tolerating oral intake. Given her age and these additional factors, I am concerned about the safety of discharge. I have discussed with Dr. Fernández who is agreeable that patient is higher risk given these factors. Patient will be started on IV ceftriaxone and fluids and admitted to the hospital - Vital Signs Vital signs: Temp Pulse Resp BP Pulse Ox 98.4 F 61 16 145/65 H 97 05/25/17 19:39 05/25/17 19:14 05/25/17 19:14 05/25/17 19:14 05/25/17 19:14 - Laboratory Result Diagrams: 05/25/17 17:33 05/25/17 18:30 Laboratory results interpreted by me: 05/25/17 05/25/17 05/25/17 16:56 17:33 17:33 WBC 11.6 H RDW 16.6 H Seg Neutrophils % 82.0 H Lymphocytes % 8.6 L Absolute Neutrophils 9.5 H Sodium Chloride Glucose Total Bilirubin Direct Bilirubin AST ALT Alkaline Phosphatase Creatine Kinase < 20 L Total Protein Albumin Urine Protein 100 H Urine Blood LARGE H Urine Urobilinogen 4.0 H Ur Leukocyte Esterase LARGE H 05/25/17 18:30 WBC RDW Seg Neutrophils % Lymphocytes % Absolute Neutrophils Sodium 132.2 L Chloride 96 L Glucose 215 H Total Bilirubin 1.7 H Direct Bilirubin 0.7 H AST 38 H ALT 62 H Alkaline Phosphatase 161 H Creatine Kinase Total Protein 5.7 L Albumin 3.2 L Urine Protein Urine Blood Urine Urobilinogen Ur Leukocyte Esterase Discharge - Discharge Clinical Impression: Pyelonephritis Condition: Fair Disposition: ADMITTED OBSERVATION Admitting Provider: Lisa Fernández Unit Admitted: Telemetry
[2017-05-25] MEDS: ALBUTEROL SULFATE 0.083% NEB 2.5 MG/3 ML AMPUL NEB SCH (20:14)
[2017-05-25 21:13] LABS: CREATINE KINASE MB < 0.22 ng/mL (<4.55); TROPONIN I < 0.012 ng/mL
[2017-05-25] MEDS ORDERED: KETOROLAC TROMETHAMINE INJ/PF 30 MG/1 ML SDV IV PRN (21:22)
[2017-05-25] MEDS ORDERED: DILTIAZEM HCL 180 MG CAPSULE.CR PO SCH (22:00)
[2017-05-25] MEDS ORDERED: PHENAZOPYRIDINE HCL 100 MG TABLET PO ONE (22:00)
[2017-05-25] MEDS ORDERED: INSULIN GLARGINE,HUM.REC.ANLOG 1,000 UNIT/10 ML UNIT SUBCUT SCH (22:00)
[2017-05-25] MEDS: ATORVASTATIN CALCIUM 40 MG TABLET PO SCH (23:32)
[2017-05-25] MEDS: NORMAL SALINE 1000 ML 1,000 ML IV SCH (23:47)
[2017-05-25] MEDS: ACETAMINOPHEN 325 MG TABLET PO PRN (23:48)
[2017-05-26] MEDS: INSULIN LISPRO 100 UNIT/ML 3 ML VIAL SUBCUT PRN ×4 (00:03→18:15)
[2017-05-26] MEDS: NORMAL SALINE 1000 ML 1,000 ML IV SCH (05:10)
--- NOTE | 2017-05-26 06:25 | PDOC H&P ---
History of Present Illness Admission Date/PCP: 05/25/17 19:57 ANNA NAQVI MD Patient complains of: Back pain and dysuria History of Present Illness: JANICE CONCEPCION is a 71 year old female with a past medical history of insulin- dependent diabetes, atrial fibrillation on Eliquis, congestive heart failure with ejection fraction of 40% and recurrent urinary tract infection for 2-1/2 months. Patient presents with 1 week of progressive back and flank pain with nausea, vomiting and fever. Symptoms worsened despite recent treatment with Macrobid, urine culture believed obtained at primary care but results unavailable. In the emergency room she is febrile with Rigors, leukocytosis and pyuria. CT imaging is negative for hydronephrosis or abscess. She is started on IV Rocephin and referred to the hospitalist for admission. Past Medical History Cardiac Medical History: Reports: Hyperlipidema Denies: Congestive Heart Failure, DVT, Myocardial Infarction, Hypertension, Pulmonary Embolism Pulmonary Medical History: Denies: Asthma, Chronic Obstructive Pulmonary Disease (COPD) Neurological Medical History: Denies: Seizures Endocrine Medical History: Reports: Diabetes Mellitus Type 2 Denies: Diabetes Mellitus Type 1, Hyperthyroidism, Hypothyroidism Malignancy Medical History: Reports: Breast Cancer GI Medical History: Reports: Gastroesophageal Reflux Disease Denies: Cirrhosis, Hepatitis Musculoskeltal Medical History: Reports: Arthritis, Gout Psychiatric Medical History: Reports: Depression Past Surgical History Past Surgical History: Reports: Appendectomy, Cholecystectomy, Mastectomy Social History Information Source: Patient, [facility] Records Lives with: Family Smoking Status: Never Smoker Frequency of Alcohol Use: None Hx Recreational Drug Use: No Drugs: None Hx Prescription Drug Abuse: No - Advance Directive Resuscitation Status: Full Code Family History Family History: Hypertension Parental Family History Reviewed: Yes Children Family History Reviewed: Yes Sibling(s) Family History Reviewed.: Yes Medication/Allergy Home Medications: Albuterol Sulfate [Albuterol Sulfate 2.5mg/3 mL] 1 vial NEB [id number] PRN 09/05/16 Allopurinol [Zyloprim 300 mg Tablet] 300 mg PO DAILY 09/05/16 Apixaban [Eliquis 5 mg Tablet] 5 mg PO Q12 09/05/16 Atorvastatin Calcium [Lipitor 40 mg Tablet] 40 mg PO DAILY 09/05/16 Duloxetine HCl [Cymbalta] 60 mg PO DAILY 09/05/16 Esomeprazole Magnesium [Nexium] 40 mg PO DAILY 09/05/16 Metformin HCl [Metformin HCl ER] 1,000 mg PO BID 09/05/16 Digoxin [Lanoxin 0.125 mg Tablet] 0.125 mg PO DAILY #30 tablet 09/10/16 Furosemide [Lasix] 40 mg PO DAILY #7 tablet 09/10/16 Diltiazem HCl [Cartia Xt] 180 mg PO DAILY 05/25/17 Duloxetine HCl [Cymbalta] 30 mg PO DAILY 05/25/17 Insulin Glargine,Hum.rec.anlog [Lantus] 5 unit SQ QAM 05/25/17 Metoprolol Succinate [Toprol Xl] 100 mg PO Q12 05/25/17 Spironolactone [Aldactone] 50 mg PO DAILY 05/25/17 Allergies/Adverse Reactions: tramadol Allergy (Verified 05/25/17 21:58) oxycodone HCl [From Percocet] Adverse Reaction (Verified 05/25/17 16:11) Review of Systems Constitutional: PRESENT: as per HPI, chills, fatigue, fever(s), weakness Eyes: ABSENT: visual disturbances Ears: ABSENT: hearing changes Cardiovascular: ABSENT: chest pain, dyspnea on exertion, edema, orthropnea, palpitations Respiratory: ABSENT: cough, hemoptysis Gastrointestinal: PRESENT: bloating, nausea, vomiting. ABSENT: constipation, diarrhea, dysphagia, heartburn Genitourinary: PRESENT: difficulty urinating, dysuria, hematuria Musculoskeletal: PRESENT: as per HPI. ABSENT: joint swelling Integumentary: ABSENT: rash, wounds Neurological: ABSENT: abnormal gait, abnormal speech, confusion, dizziness, focal weakness, syncope Psychiatric: ABSENT: anxiety, depression, homidical ideation, suicidal ideation Endocrine: ABSENT: cold intolerance, heat intolerance, polydipsia, polyuria Hematologic/Lymphatic: ABSENT: easy bleeding, easy bruising Physical Exam Vital Signs: Temp Pulse Resp BP Pulse Ox 97.8 F 98 15 97/52 L 97 05/26/17 04:00 05/26/17 04:00 05/26/17 04:00 05/26/17 04:00 05/26/17 04:00 Intake & Output 05/24/17 05/25/17 05/26/17 11:59 11:59 11:59 Weight 96.5 kg General appearance: PRESENT: no acute distress, cooperative, severe distress, well-developed, well-nourished Head exam: PRESENT: atraumatic, normocephalic Eye exam: PRESENT: conjunctiva pink, EOMI, PERRLA. ABSENT: scleral icterus Ear exam: PRESENT: normal external ear exam Mouth exam: PRESENT: moist, tongue midline Neck exam: ABSENT: carotid bruit, JVD, lymphadenopathy, thyromegaly Respiratory exam: PRESENT: clear to auscultation kingsley. ABSENT: rales, rhonchi, wheezes Cardiovascular exam: PRESENT: RRR. ABSENT: diastolic murmur, rubs, systolic murmur Pulses: PRESENT: normal dorsalis pedis pul Vascular exam: PRESENT: normal capillary refill GI/Abdominal exam: PRESENT: hyperactive bowel sounds, soft, tenderness - Diffuse tenderness. ABSENT: distended, guarding, mass, organolmegaly, rebound Rectal exam: PRESENT: deferred Extremities exam: PRESENT: full ROM. ABSENT: calf tenderness, clubbing, pedal edema Neurological exam: PRESENT: alert, awake, oriented to person, oriented to place , oriented to time, oriented to situation, CN II-XII grossly intact. ABSENT: motor sensory deficit Psychiatric exam: PRESENT: appropriate affect, normal mood. ABSENT: homicidal ideation, suicidal ideation Skin exam: PRESENT: dry, intact, warm. ABSENT: cyanosis, rash Results Laboratory Results: 05/25/17 20:15 CK-MB (CK-2) < 0.22 Troponin I < 0.012 Impressions: Abdomen/Pelvis CT 05/25/17 18:58 IMPRESSION: NO SIGNIFICANT OR ACUTE PROCESS IN THE ABDOMEN OR PELVIS. Assessment & Plan - Diagnosis (1) Pyelonephritis Is this a current diagnosis for this admission?: Yes Plan: Admission to monitored bed, empiric antibiotics, obtain urine culture from primary care provider, follow-up CBC blood and urine culture (2) Anticoagulated Is this a current diagnosis for this admission?: Yes Plan: Continue Eliquis for A. fib (3) Diabetes mellitus type 2 in obese Is this a current diagnosis for this admission?: Yes Plan: Home regiment with exception to metformin and sliding scale insulin. - Time Time Spent: 30 to 50 Minutes - Inpatient Certification Medical Necessity: Need Close Monitoring Due to Risk of Patient Decompensation
[2017-05-26] MEDS: LANSOPRAZOLE 30 MG TAB.RAP.DR PO SCH (07:06)
[2017-05-26 07:14] LABS: HEMATOCRIT 35.4 % (36.0-47.0); HEMOGLOBIN 11.8 g/dL (12.0-15.5); MEAN CORPUSCULAR HEMOGLOBIN 29.5 pg (27.0-33.4); MEAN CORPUSCULAR HGB CONC 33.4 g/dL (32.0-36.0); MEAN CORPUSCULAR VOLUME 88 fl (80-97); RED BLOOD COUNT 4.01 10^6/uL (3.72-5.28); RED CELL DISTRIBUTION WIDTH 15.8 % (11.5-14.0); WHITE BLOOD COUNT 8.8 10^3/uL (4.0-10.5)
[2017-05-26 07:24] LABS: ANION GAP 11 (5-19); BLOOD UREA NITROGEN 17 mg/dL (7-20); CALCIUM 8.8 mg/dL (8.4-10.2); CARBON DIOXIDE 23 mmol/L (22-30); CHLORIDE 105 mmol/L (98-107); CREATININE RESULT 0.89 mg/dL (0.52-1.25); GLUCOSE 213 mg/dL (75-110); POTASSIUM 4.1 mmol/L (3.6-5.0); SODIUM 138.9 mmol/L (137-145)
[2017-05-26] MEDS: ALBUTEROL SULFATE 0.083% NEB 2.5 MG/3 ML AMPUL NEB SCH (07:45)
[2017-05-26 07:46] LABS: ANISOCYTOSIS SLIGHT; BAND NEUTROPHILS % (MANUAL) 1 % (3-5); BASOPHILS % (MANUAL) 0 % (0-2); EOSINOPHILS % (MANUAL) 0 % (0-6); LYMPHOCYTES % (MANUAL) 5 % (13-45); POLYCHROMASIA SLIGHT; TOTAL CELLS COUNTED 100; TOXIC GRANULATION 1+; TOXIC VACUOLATION PRESENT
[2017-05-26] MEDS ORDERED: INFLUENZA ADLT QUAD (36MOS+) 2017-18 VAC 0.5 ML SYR IM PRN (08:45)
[2017-05-26] MEDS ORDERED: SPIRONOLACTONE 25 MG TABLET PO SCH (10:00)
[2017-05-26] MEDS ORDERED: DULOXETINE HCL 30 MG CAPSULE.DR PO SCH (10:00)
[2017-05-26] MEDS ORDERED: (PENDING PHARMACY ID) (Diltiazem Hcl [Cartia Xt] 180 MG) PO SCH (11:15)
[2017-05-26] MEDS ORDERED: ALBUTEROL SULFATE 0.083% NEB 2.5 MG/3 ML AMPUL NEB PRN (11:15)
[2017-05-26] MEDS: ALLOPURINOL 300 MG TABLET PO SCH (11:34)
[2017-05-26] MEDS: FUROSEMIDE 40 MG TABLET PO SCH (11:35)
[2017-05-26] MEDS: DOCUSATE SODIUM 100 MG CAPSULE PO SCH ×2 (11:35→18:16)
[2017-05-26] MEDS: DIGOXIN 0.125 MG TABLET PO SCH (11:36)
[2017-05-26] MEDS: APIXABAN 5 MG TABLET PO SCH ×2 (11:37→18:15)
[2017-05-26] MEDS ORDERED: METOPROLOL SUCCINATE 50 MG TAB.SR.24H PO ONE (12:00)
[2017-05-26] MEDS ORDERED: DILTIAZEM HCL 180 MG CAPSULE.CR PO ONE (12:00)
--- NOTE | 2017-05-26 12:18 | PROGRESS NOTE E ---
Progress Note NAME: JANICE CONCEPCION : 1945 AGE: 71Y DATE: 05/26/2017 ROOM: 420 CHIEF COMPLAINT: Fatigue. SUBJECTIVE: The patient is currently lying in bed. She states she feels much better than when she came in. She denies any nausea, vomiting, diarrhea. No shortness of breath, dizziness, chest pain. No fevers, chills. She denies any hematuria, pyuria, dysuria. Patient's symptoms overall are much improved. However, she is still quite fatigued, and the patient does not voice any other concerns at this time. REVIEW OF SYSTEMS: Rest of review of systems negative. MEDICATIONS: Medications have been reviewed. OBJECTIVE: GENERAL: The patient is a 71-year-old female who is awake, alert, but just sleepy. She does not appear to be in any acute distress. VITAL SIGNS: Temperature is 97.5, pulse 77, respirations 16, blood pressure 128/61, oxygen saturation 95% on 2 L nasal cannula. SKIN: Warm and dry. No rash. She is not diaphoretic. HEENT: Pupils equal, round, and reactive to light and accommodation. Conjunctiva is pink. No JVP. CARDIOVASCULAR SYSTEM: Heart is regular. There is no murmur or rub. CHEST: Clear, symmetrical, unlabored. ABDOMEN: Soft, nontender, nondistended. BACK: No CVA tenderness or sacral edema. PSYCHIATRIC: Appropriate affect, pleasant mood. DIAGNOSTICS: Lab values are as follows: Hematology obtained on 05/26/2017: WBC is 8.8, hemoglobin is 11.8, hematocrit is 35.4, platelet count is 180,000. Chemistry obtained on 05/26/2017: Sodium is 138, potassium 4.1, chloride is 105, carbon dioxide 23, BUN 17, creatinine is 0.89, glucose 213, calcium is 8.8. Urine culture obtained on 05/25/2017 reveals gram-negative rods. Urine culture obtained on 05/25/2017 is pending. IMPRESSION AND PLAN: 1. GRAM-NEGATIVE ROSE MARIE URINARY TRACT INFECTION. The patient failed 5 outpatient days of treatment with Macrobid. The patient's symptoms have improved with fluids and Rocephin. The patient was last febrile around midnight. Will continue antibiotic coverage and await culture and sensitivity and pyretics as needed and follow. 2. SEPSIS SECONDARY TO NUMBER 1. THE PATIENT DID HAVE LEUKOCYTOSIS, DEHYDRATION, FEVERED STATE, AND ALTERED MENTAL STATUS. The patient responded well to a fluid bolus, and according to daughter, is much more at baseline, but the patient is still quite fatigued. 3. DIABETES MELLITUS TYPE 2. Will continue the patient's home medications as well as sliding scale coverage and follow. 4. CHRONIC SYSTOLIC CONGESTIVE HEART FAILURE WITH AN EF OF 40%. Will continue the patient's home medications and monitor for evidence of overload given the patient's hydration. 5. ATRIAL FIBRILLATION. The patient is chronically anticoagulated with Eliquis. 6. HYPERLIPIDEMIA. Will continue the patient's home medications. DISPOSITION: The patient is a FULL CODE. Pending patient's symptomatology and diagnostic findings, will re-evaluate in the a.m. Will admit the patient to the inpatient telemetry as the patient's suspected length of stay should surpass 2 midnights given the patient's need for IV antibiotics and failure of outpatient treatment. Time spent on this followup including assessment, plan, physical examination, patient education, family meeting, review of records is 25 minutes. DICTATING PHYSICIAN: PRITI GONZALEZ NP [id number] PHY#: [id number] ID: [id number] JOB#: [id number] ACCT: [id number] cc: >
[2017-05-26] MEDS ORDERED: DULOXETINE HCL 30 MG CAPSULE.DR PO ONE (12:30)
--- NOTE | 2017-05-26 12:37 | Physician Advisory Note ---
Physician Advisor ProgressNote .: Pursuant to the plan for [facility], I have reviewed the medical record for this patient. Physician Advisor Statement: Please consider documenting, if you agree: 1. "Chronic systolic CHF" - & is there "Acute systolic CHF" developing now causing the decreased P/F ratio this AM after IVF? 2. "Persistent Afib" (vs "Paroxysmal Afib") 3. "Acute hyponatremia, likely due to intravascular volume depletion, resolved " 4. Medical necessity: Please continue to document each day the clincial reasons pt cannot safely be sent home that day. STatus: 71yo Medicare pt with acute pyelonephritis, failed outpt tx of the UTI with nitrofurantoin. She had hyponatremia & leukocytosis. She was given 1L IVF bolus in ED. She has underlying chronic systolic CHF w/EF 40%, so this increases her risk for acute CHF developing with IVF. She was given 2L more IVF boluses per attending. Today, she has developed tachycardia despite her ongoing beta demond, calcium channel demond, & digoxin. She spiked to max temp 102.9 at 23:32 last PM. O2 sat only 95% on 2L O2 at 07:52 (P/F ratio 286) , concerning for possible Acute systolic CHF developing from the IVF boluses. Meanwhile, despite the IVF given so far, she is noticeably more hypotensive than she was initially: from 120s-140s on 05/25 to 90s/50s, concerning for possible sepsis developing from the pyelo. HIgh risk for further decompensation. Extremely unlikely that attending will consider her safe to leave hospital before a 2nd MN tonight. Appropriate to change to Inpatient status. CK
[2017-05-26] MEDS: METFORMIN HCL 500 MG TABLET PO SCH ×2 (15:30→21:42)
[2017-05-26] MEDS ORDERED: (PENDING PHARMACY ID) (Metformin Hcl [Metformin Hcl Er] 1,000 MG) PO SCH (18:00)
[2017-05-26] MEDS: CEFTRIAXONE 1 GM/D5W RTU 1 GM/50 ML RTUPB IV SCH (18:14)
[2017-05-26] MEDS: ATORVASTATIN CALCIUM 40 MG TABLET PO SCH (21:42)
[2017-05-26] MEDS: METOPROLOL SUCCINATE 50 MG TAB.SR.24H PO SCH (21:42)
[2017-05-26] MEDS: INSULIN GLARGINE,HUM.REC.ANLOG 300 UNIT/3 ML INSULN.PEN SUBCUT SCH (21:42)
[2017-05-26] MEDS: ACETAMINOPHEN 325 MG TABLET PO PRN (21:43)
[2017-05-27] MEDS ORDERED: NORMAL SALINE 1000 ML 1,000 ML IV ONE (03:18)
[2017-05-27 05:25] LABS: HEMOGLOBIN 12.5 g/dL (12.0-15.5); HGB HCT DIFFERENCE -0.5; MEAN CORPUSCULAR HEMOGLOBIN 29.4 pg (27.0-33.4); MEAN CORPUSCULAR VOLUME 89 fl (80-97); RED BLOOD COUNT 4.26 10^6/uL (3.72-5.28); RED CELL DISTRIBUTION WIDTH 15.8 % (11.5-14.0); WHITE BLOOD COUNT 8.9 10^3/uL (4.0-10.5)
[2017-05-27] MEDS: LANSOPRAZOLE 30 MG TAB.RAP.DR PO SCH (05:26)
[2017-05-27 05:44] LABS: ALANINE AMINOTRANSFERASE 79 U/L (9-52); ALBUMIN 2.8 g/dL (3.5-5.0); ALKALINE PHOSPHATASE 212 U/L (38-126); ANION GAP 12 (5-19); ASPARTATE AMINO TRANSFERASE 64 U/L (14-36); BILIRUBIN,DIRECT 0.9 mg/dL (0.0-0.4); BILIRUBIN,TOTAL 1.5 mg/dL (0.2-1.3); BLOOD UREA NITROGEN 10 mg/dL (7-20); CARBON DIOXIDE 24 mmol/L (22-30); CHLORIDE 104 mmol/L (98-107); CREATININE RESULT 0.68 mg/dL (0.52-1.25); GLUCOSE 143 mg/dL (75-110); MAGNESIUM 1.6 mg/dL (1.6-2.3); POTASSIUM 3.9 mmol/L (3.6-5.0); TOTAL PROTEIN 5.1 g/dL (6.3-8.2)
[2017-05-27] MEDS ORDERED: (PENDING PHARMACY ID) (Spironolactone [Aldactone] 50 MG) PO SCH (10:00)
[2017-05-27] MEDS ORDERED: DILTIAZEM HCL 180 MG CAPSULE.CR PO SCH (10:00)
[2017-05-27] MEDS: METOPROLOL SUCCINATE 50 MG TAB.SR.24H PO SCH ×2 (10:16→22:22)
[2017-05-27] MEDS: DILTIAZEM HCL 180 MG CAPSULE.CR PO SCH (10:17)
[2017-05-27] MEDS: DULOXETINE HCL 30 MG CAPSULE.DR PO SCH (10:17)
[2017-05-27] MEDS: METFORMIN HCL 500 MG TABLET PO SCH ×4 (10:17→22:22)
[2017-05-27] MEDS: SPIRONOLACTONE 25 MG TABLET PO SCH (10:17)
[2017-05-27] MEDS: FUROSEMIDE 40 MG TABLET PO SCH (10:18)
[2017-05-27] MEDS: ALLOPURINOL 300 MG TABLET PO SCH (10:18)
[2017-05-27] MEDS: APIXABAN 5 MG TABLET PO SCH ×2 (10:19→18:01)
[2017-05-27] MEDS: DIGOXIN 0.125 MG TABLET PO SCH (10:19)
[2017-05-27] MEDS: DOCUSATE SODIUM 100 MG CAPSULE PO SCH ×2 (10:27→18:02)
[2017-05-27] MEDS: INSULIN LISPRO 100 UNIT/ML 3 ML VIAL SUBCUT PRN ×3 (12:15→22:22)
--- NOTE | 2017-05-27 14:13 | PROGRESS NOTE E ---
Progress Note NAME: JANICE CONCEPCION : 1945 AGE: 71Y DATE: 05/27/2017 ROOM: 420 SUBJECTIVE: The patient is currently lying in bed. She states that she feels better today. She has been able to get up on her own power and ambulate to the bathroom. She denies any nausea, vomiting, or diarrhea. No shortness of breath, dizziness, or chest pain. No fever or chills. The patient's back pain has improved significantly, and the patient does not voice any other concerns at this time. REVIEW OF SYSTEMS: Rest of the review of systems is negative. MEDICATIONS: Have been reviewed. OBJECTIVE: GENERAL: The patient is a 71-year-old female who is awake and alert. She is oriented to person, place, time, and situation. She is verbal, conversational, ambulatory. She does not appear to be in any acute distress. VITAL SIGNS: Temperature 98.3, pulse 77, respirations 15, blood pressure 124/49, oxygen saturation is 98% on 2 L nasal cannula. SKIN: Warm and dry. No rash. She is not diaphoretic. HEENT: Pupils equal, round, reactive to light and accommodation. Conjunctivae are pink. No JVP. CARDIOVASCULAR: Heart is irregularly irregular. There is no murmur or rub. CHEST: Clear, symmetrical, unlabored. ABDOMEN: Soft, nontender, nondistended. BACK: No CVA tenderness or sacral edema. EXTREMITIES: No clubbing, cyanosis, or edema. PSYCHIATRIC: Appropriate affect. Pleasant mood. DIAGNOSTICS: Lab values are as follow: Hematology obtained on 05/27/2017: WBCs are 8.9, hemoglobin is 12.5, hematocrit is 38.0, platelet count is 196,000. Chemistry obtained on 05/26/2017: Sodium is 138, potassium 4.1, chloride is 105, carbon dioxide 23, BUN 17, creatinine is 0.89, glucose 213, calcium is 8.8. Urine culture obtained on 05/25/2017 reveals gram negative rods. Blood culture obtained on 05/25/2017 reveals no growth. IMPRESSION AND PLAN: 1. GRAM NEGATIVE ROSE MARIE URINARY TRACT INFECTION. The patient failed 5 outpatient days of treatment with Macrobid. The patient's symptoms have improved with IV fluids and Rocephin. Will continue this and await culture and sensitivity as it is still pending. Will continue antipyretics as needed. 2. SEPSIS SECONDARY TO #1. The patient did have significant leukocytosis, dehydration, fevered state, altered mental status. The patient received yet another bolus overnight and the patient now is at her baseline. 3. DIABETES MELLITUS TYPE 2. Will continue home medications. 4. CHRONIC SYSTOLIC CONGESTIVE HEART FAILURE WITH AN EF OF 40%. Will continue the patient's home medication and monitor for evidence of overload given the patient's bolusing. 5. CHRONIC ATRIAL FIBRILLATION. She is anticoagulated with Eliquis, rate controlled. 6. HYPERLIPIDEMIA. Will continue the patient's home medication. DISPOSITION: The patient is a FULL CODE. Pending patient's symptomatology and diagnostic findings, will reevaluate in the a.m. for possible discharge. Time spent on this followup including assessment, plan, physical examination, patient education, family meeting, and review of records 25 minutes. DICTATING PHYSICIAN: PRITI GONZALEZ NP [id number] PHY#: [id number] ID: [id number] JOB#: [id number] ACCT: [id number] cc: >
[2017-05-27] MEDS: CEFTRIAXONE 1 GM/D5W RTU 1 GM/50 ML RTUPB IV SCH (18:01)
[2017-05-27] MEDS: INSULIN GLARGINE,HUM.REC.ANLOG 300 UNIT/3 ML INSULN.PEN SUBCUT SCH (22:22)
[2017-05-27] MEDS: ATORVASTATIN CALCIUM 40 MG TABLET PO SCH (22:22)
[2017-05-28] MEDS: LANSOPRAZOLE 30 MG TAB.RAP.DR PO SCH (05:38)
[2017-05-28] MEDS: DILTIAZEM HCL 180 MG CAPSULE.CR PO SCH (09:47)
[2017-05-28] MEDS: METOPROLOL SUCCINATE 50 MG TAB.SR.24H PO SCH (09:48)
[2017-05-28] MEDS: FUROSEMIDE 40 MG TABLET PO SCH (09:48)
[2017-05-28] MEDS: SPIRONOLACTONE 25 MG TABLET PO SCH (09:48)
[2017-05-28] MEDS: METFORMIN HCL 500 MG TABLET PO SCH ×2 (09:48→14:01)
[2017-05-28] MEDS: DIGOXIN 0.125 MG TABLET PO SCH (09:49)
[2017-05-28] MEDS: DULOXETINE HCL 30 MG CAPSULE.DR PO SCH (09:49)
[2017-05-28] MEDS: ALLOPURINOL 300 MG TABLET PO SCH (09:49)
[2017-05-28] MEDS: APIXABAN 5 MG TABLET PO SCH (09:53)
[2017-05-28] MEDS ORDERED: CEFUROXIME 500 MG TABLET PO SCH (10:00)
[2017-05-28] MEDS: DOCUSATE SODIUM 100 MG CAPSULE PO SCH (10:02)
[2017-05-28] MEDS ORDERED: ONDANSETRON HCL INJ/PF 4 MG/2 ML SDV IV PRN (10:30)
--- NOTE | 2017-05-28 11:23 | DISCHARGE SUMMARY E ---
Discharge Summary NAME: JANICE CONCEPCION : 1945 AGE: 71Y ADMITTED: 05/26/2017 DISCHARGED: 05/28/2017 CODE STATUS: FULL CODE. PRIMARY CARE PROVIDER: Svetlana DISCHARGE DIAGNOSES: 1. E. coli urinary tract infection. 2. Sepsis secondary to #1. 3. Diabetes mellitus type 2. 4. Chronic systolic congestive heart failure with an EF of 40%. 5. Chronic atrial fibrillation. 6. Hyperlipidemia. 7. Hyponatremia secondary to volume depletion. DISCHARGE MEDICATIONS: 1. Ceftin 500 mg p.o. b.i.d., 6 tablets with 0 refills. 2. Lasix 40 mg p.o. daily. 3. Digoxin 0.125 mg p.o. daily. 4. Aldactone 50 mg p.o. daily. 5. Toprol XL 100 mg p.o. q.12 hours. 6. Metformin 1000 mg p.o. b.i.d. 7. Lantus 5 units subcutaneous every a.m. 8. Nexium 40 mg p.o. daily. 9. Cymbalta 90 mg p.o. daily. 10. Cardizem 180 mg p.o. daily, long acting. 11. Lipitor 40 mg p.o. daily. 12. Eliquis 5 mg p.o. q.12 hours. 13. Allopurinol 300 mg p.o. daily. 14. Albuterol 2.5 mg p.o. q.8 hours p.r.n. DIET: Heart healthy. ACTIVITY: As tolerated. DIAGNOSTICS: Lab values are follow: Hematology obtained on 05/27/2017: WBCs are 8.9, hemoglobin is 12.5, hematocrit is 38.0, platelet count is 196,000. Chemistry obtained on 05/27/2017: Sodium is 140, potassium 3.9, chloride 104, carbon dioxide 24, BUN 10, creatinine is 0.68, glucose 143, calcium is 9.0, magnesium is 1.6, bilirubin is 1.5, AST 64, ALT is 79, alk phos is 212, total protein 5.1, albumin 3.8. Troponin 0.012. Urinalysis obtained on 05/25/2017: Color mirza, appearance turbid, pH is 5.0, specific gravity 1.017, protein 100, glucose negative, ketones negative, occult blood large, nitrate negative, bilirubin negative, urobilinogen 4.0, leukocyte esterase large, WBCs are greater than 182, RBC 129, bacteria 1+, WBC many. Microbiology: Urine culture obtained 05/25/2017 reveals E. coli. Blood cultures obtained on 05/25/[address] of the abdomen and pelvis obtained on 05/25/2017 reveals no significant or acute process in the abdomen or pelvis. PHYSICAL EXAMINATION: GENERAL: On examination, the patient is a well-developed, well-nourished, 71-year-old female who is awake, alert, and oriented to person, place, time, and situation. She is verbal, conversational, ambulatory, and does not appear to be in any acute distress. VITAL SIGNS: Temperature 98.7, pulse 79, respirations 16, blood pressure 110/60, oxygen saturation is 93% on room air. SKIN: Warm and dry. No rash. Not diaphoretic. HEENT: Pupils equal, round, reactive to light and accommodation. Conjunctivae are pink. There is no JVP. CARDIOVASCULAR: Heart is irregularly irregular. There is no murmur or rub. CHEST: Clear, symmetrical, unlabored. ABDOMEN: Soft, nontender, nondistended. BACK: No CVA tenderness or sacral edema. EXTREMITIES: No clubbing, cyanosis, or edema. PSYCHIATRIC: Appropriate affect. Pleasant mood. HISTORY OF PRESENT ILLNESS: The patient is a 71-year-old female with a past medical history of atrial fibrillation. The patient presented to the emergency department with a chief complaint of dysuria and overall generalized weakness. The patient stated that she had over a week progressive nausea and pain as well as fever. The patient stated her symptoms worsened despite being treated with Macrobid. While in the emergency department, the patient was febrile with rigors, leukocytosis as well as pyuria. The patient did have a CT imaging that was negative for hydronephrosis or abscess. The patient was started on IV Rocephin and was referred to the hospitalist for admission and management. HOSPITAL COURSE: The patient was admitted to continuous telemetry unit. The patient did have a white count and was tachycardiac as well as febrile, suggestive of an overall sepsis picture. The patient required 2 fluid boluses during her stay to keep her blood pressure up actually. The patient was quite ill. The patient responded very nicely to Rocephin. Although the patient's urine culture was patel sensitive and given that nitrofurantoin has little to no efficacy above the urethra, this most likely exacerbated the situation. The patient has been transitioned over to oral Ceftin and has tolerated this well. The patient is back to her baseline and is ready for discharge. Time on this discharge including assessment, plan, physical examination, patient education, family meeting, and review of records is 25 minutes. DICTATING PHYSICIAN: PRITI GONZALEZ NP [id number] PHY#: [id number] ID: [id number] JOB#: [id number] ACCT: [id number] cc:PRITI GONZALEZ NP, JOHN E. M.D. > MTDD
[2017-05-28 14:17] VITALS: BP 110/60
== END 2017-05-28 15:42 | disposition home or self-care (01) | DRG 872 ==
LOC: ER 16:05 → EH 19:57 → INTOOBSV 19:57 → 4W 21:06 → OBSVTOIN 05-26 11:35
PROVIDERS: ADMIT Internal Medicine; ATTEND Internal Medicine
PROC: 3E0F73Z Introduction of Anti-inflammatory into Respiratory Tract, Via Natural or Artificial Opening (ICD-10-PCS; principal; 2017-05-25)
PROC: 3E0234Z Introduction of Serum, Toxoid and Vaccine into Muscle, Percutaneous Approach (ICD-10-PCS; 2017-05-28)
DX: A41.9 Sepsis, unspecified organism (principal); I50.22 Chronic systolic (congestive) heart failure; E87.1 Hypo-osmolality and hyponatremia; N10 Acute pyelonephritis; B96.20 Unspecified Escherichia coli [E. coli] as the cause of diseases classified elsewhere; E11.9 Type 2 diabetes mellitus without complications; I48.2 Chronic atrial fibrillation; E78.5 Hyperlipidemia, unspecified; K21.9 Gastro-esophageal reflux disease without esophagitis; M19.90 Unspecified osteoarthritis, unspecified site; F32.9 Major depressive disorder, single episode, unspecified; Z88.6 Allergy status to analgesic agent; Z23 Encounter for immunization; Z79.899 Other long term (current) drug therapy; Z79.4 Long term (current) use of insulin; Z85.3 Personal history of malignant neoplasm of breast; Z90.49 Acquired absence of other specified parts of digestive tract; Z90.10 Acquired absence of unspecified breast and nipple; Z82.49 Family history of ischemic heart disease and other diseases of the circulatory system
CPT/HCPCS: 36415; 74176; 80048; 80053; 81001; 82550; 82553; 82962; 83735; 84484; 85025; 85027; 87040; 87086; 87088; 87186; 90686; 94640; 96365; 99285; G0378; J0696; J1815; J3490; J7030

== ENCOUNTER 2019-07-24 09:10 | Emergency (ER) | payer MEDICARE, MEDICAID ==
--- NOTE | 2019-07-24 09:42 | ER Document Report ---
HPI - HPI Patient complains to provider of: Right knee pain Time Seen by Provider: 07/24/19 09:33 Onset: Other - Context: 73-year-old female with history of high cholesterol hypertension atrial fib presents to the emergency department with complaints of right knee pain. Reports she tripped outside and fell onto her knee. She reports she did not hit her head or hurt anything else. Patient reports she did not get dizzy. She just tripped and fell. She reports some pain and numbness feeling to the knee since that time. She reports she takes ibuprofen which helps the pain. She does take anticoagulants for her A. fib. Patient's daughter is with her. Daughter lives with patient. Reports she has been acting fine no confusion. Associated Symptoms: None Exacerbated by: Denies Relieved by: Denies Similar symptoms previously: No Recently seen / treated by doctor: No - REPRODUCTIVE Reproductive: DENIES: : Past Medical History - General Information source: Patient - Social History Smoking Status: Unknown if Ever Smoked Lives with: Family Family History: Hyperlipidemia, Hypertension - Past Medical History Cardiac Medical History: Reports: Hx Hypercholesterolemia Denies: Hx Congestive Heart Failure, Hx DVT, Hx Heart Attack, Hx Hypertension, Hx Pulmonary Embolism Pulmonary Medical History: Denies: Hx Asthma, Hx COPD Neurological Medical History: Denies: Hx Seizures Endocrine Medical History: Reports: Hx Diabetes Mellitus Type 2. Denies: Hx Diabetes Mellitus Type 1, Hx Hyperthyroidism, Hx Hypothyroidism Renal/ Medical History: Denies: Hx Peritoneal Dialysis Malignancy Medical History: Reports: Hx Breast Cancer, Hx Ovarian Cancer GI Medical History: Reports: Hx Gastroesophageal Reflux Disease. Denies: Hx Cirrhosis, Hx Hepatitis Musculoskeletal Medical History: Reports Hx Arthritis, Reports Hx Gout Psychiatric Medical History: Reports: Hx Depression Infectious Medical History: Denies: Hx Hepatitis Past Surgical History: Reports: Hx Appendectomy, Hx Bowel Surgery, Hx Cholecystectomy, Hx Mastectomy - Immunizations Hx Diphtheria, Pertussis, Tetanus Vaccination: No Vertical Provider Document - CONSTITUTIONAL Agree With Documented VS: Yes Exam Limitations: No Limitations General Appearance: WD/WN, No Apparent Distress - Patient ambulating without limping. - INFECTION CONTROL TRAVEL OUTSIDE OF THE [place] IN LAST 30 DAYS: No - HEENT HEENT: Atraumatic, Normocephalic - NECK Neck: Normal Inspection, Supple. negative: Lymphadenopathy-Left, Lymphadenopathy-Right - RESPIRATORY Respiratory: Breath Sounds Normal, No Respiratory Distress - CARDIOVASCULAR Cardiovascular: Regular Rate - GI/ABDOMEN Gastrointestinal: Abdomen Soft, Abdomen Non-Tender - MUSCULOSKELETAL/EXTREMETIES Musculoskeletal/Extremeties: MAEW, FROM, Tender - No obvious deformity ecchymosis noted to anterior knee. No erythema no warmth no swelling. Patient does complain of some tenderness to palpation. - NEURO Level of Consciousness: Awake, Alert, Appropriate Motor/Sensory: No Motor Deficit - DERM Integumentary: Warm, Dry Course - Re-evaluation Re-evalutation: 07/24/19 09:40 73-year-old female presents emergency department with complaints of right knee pain since she fell and tripped landing on her knee. This occurred on . Daughter reports patient's been acting fine since that time except for complaining of knee pain. Patient reports she did not hit her head. As soon as she fell a neighborhood police man helped her. Patient is alert and oriented answering all questions appropriately. Right knee x-ray ordered. 07/24/19 10:18 Knee X-Ray 07/24/19 09:37 IMPRESSION: DJD and osteopenia. No fracture or effusion. 07/24/19 Right knee x-ray with DJD and osteopenia no fracture noted. patient instructed on this instructed on ice packs rest elevate follow-up with primary care provider as indicated. She verbalized understanding to all instructions noted her daughter. - Diagnostic Test Radiology reviewed: Image reviewed, Reports reviewed Discharge - Discharge Clinical Impression: Right anterior knee pain Condition: Stable Disposition: HOME, SELF-CARE Instructions: Ice Packs ([facility]) Additional Instructions: *You have been evaluated for knee pain *Your knee x-ray was negative for a fracture *Rest/Ice/Elevate your knee for comfort *Follow up with your provider within 1 week for recheck Take ibuprofen as indicated for pain *Return to ED for worsening condition, changes, needs Monitor your blood pressure. Your blood pressure was elevated today. This may be because you were anxious, in pain or because you need medication. It is important to follow up with your primary care provider for full evaluation. Forms: Elevated Blood Pressure Referrals: LANETTE DU FNP-C [NO LOCAL MD] - Follow up in 1 week
[2019-07-24 09:53] VITALS: BP 150/62
--- NOTE | 2019-07-24 10:04 | RADIOLOGY REPORT (SQ) ---
EXAM DESCRIPTION: KNEE RIGHT 4 VIEWS COMPLETED DATE/TIME: 07/24/2019 9:52 am REASON FOR STUDY: fell on knee pain COMPARISON: None. NUMBER OF VIEWS: Four views right knee LIMITATIONS: None. FINDINGS: Osteopenic without gross fracture or bone lesion. Degenerative spurring in the patellofem oral compartment and to a limited extent medially and laterally. No effusion. Potential calcified l oose body lateral to the patella. OTHER: No other significant finding. IMPRESSION: DJD and osteopenia. No fracture or effusion. TECHNICAL DOCUMENTATION: JOB ID: [id number] Reading location - IP/workstation name: [email or web address]
== END 2019-07-24 10:42 | disposition home or self-care (01) ==
LOC: ER 09:10
DX: M25.561 Pain in right knee (principal); E78.00 Pure hypercholesterolemia, unspecified; I48.91 Unspecified atrial fibrillation; I10 Essential (primary) hypertension; Z90.49 Acquired absence of other specified parts of digestive tract
CPT/HCPCS: 99283